=== PATIENT | male | born 1975 | race Caucasian/White ===

== ENCOUNTER → 2016-12-13 | Outpatient (CLI) | payer BC ==
[~2016-12-13] MED LIST: /ARTH50TA PO; /DULO30CA OR; /ONDA4TA OR; /PANT40TA PO; /SUCR1TA; /SUCR1TA PO; ADVI200C5 PO; BENT20TA; CALC500T49 OR; DICY20TA2 OR; DRIS50002 PO; FISH1000 OR; GABA600T3 PO; HYDR200T3 PO; HYOMAX PO; LIDO5OI EXT; LYRI75CA OR; MOBI15TA PO; NABU50TA PO; OMEP40CA2 PO; PAPATAB3 PO; PENNSAID TOP; PERC7.5T12 PO; SOMA350T OR; SULF500T2 PO; THERGRAN PO; TOPI25TA2 OR; TRAM50TA2 PO; ULTRTA; VENTAER INH; VICO5TAB OR; VICODINES TAB OR; VIT D 2000 OR; VITA400C PO; VITAMIN D50000 UNT OR; [UNRECOGNIZED DRUG - OTHER] PO; [UNRECOGNIZED DRUG - OTHER] PO; [UNRECOGNIZED DRUG - OTHER] PO; [UNRECOGNIZED DRUG - OTHER] PO; [UNRECOGNIZED DRUG - OTHER] PO; [UNRECOGNIZED DRUG - OTHER] PO; digestive advantage PO; oxyCODONE 5MG TAB As Ordered ONE; vitamin e OR
--- NOTE | 2016-12-14 01:21 | ECWPNPC ---
PATIENT NAME: SONI GILL : 1975 GENDER: MALE VISIT DATE: 12/13/2016 DISCHARGE DATE: 12/13/16 1041 VISIT LOCKED DATE TIME: PHYSICIAN: BRETT COOLEY RESOURCE: BRETT COOLEY REASON FOR APPOINTMENT 1. HERNIA HISTORY OF PRESENT ILLNESS HISTORY OF PRESENT ILLNESS: PAIN THE PATIENT DESCRIBES THE PAIN... FALL RISK SCREENING: SCREENING :NO FALLS IN THE PAST YEAR TODAY'S VISIT: NOTES: RATES PAIN TODAY 5/10. IS NOTING BILATERAL GROIN PAIN, WELL NECK AND LOW BACK AND BILATERAL KNEE PAIN. [facility] SE[facility] WHO WANT S TO MAKE SURE HE IS TAKING HIS CYMBALTA THIS IS BEING USED IN MANAGEMENT OF RHEUMATOID ARTHRITIS. . CURRENT MEDICATIONS TAKING ALBUTEROL SULFATE (5 MG/ML) 0.5% NEBULIZATION SOLUTION 0.5 ML INHALATION THREE TIMES A DAY TAKING DICYCLOMINE HCL 20 MG TABLET 1 TABLET ORALLY TID TAKING CYMBALTA 30 MG TABLET 1 TAB(S) ORALLY AT BEDTIME TAKING DIGESTIVE ENZYMES TABLET ORALLY DAILY TAKING GABAPENTIN 600 MG TABLET 1 TABLET ORALLY 5 TIMES A DAY TAKING HYDROXYCHLOROQUINE SULFATE 200 MG TABLET 1 TABLET WITH FOOD OR MILK ORALLY BID TAKING OMEPRAZOLE 40 MG CAPSULE DELAYED RELEASE 1 CAPSULE ORALLY TWICE A DAY TAKING VITAMIN D 1000 UNIT CAPSULE 1 CAPSULE ORALLY ONCE A DAY TAKING VITAMIN D 2000 UNIT TABLET ORALLY DAILY TAKING PROBIOTIC ACIDOPHILUS CAPSULE ORALLY QD TAKING MELOXICAM 15 MG TABLET ORAL DAILY TAKING SULFASALAZINE 500 MG TABLET ORAL 6 TIMES PER DAY TAKING CYMBALTA 60 MG CAPSULE DELAYED RELEASE PARTICLES 1 CAPSULE ORALLY ONCE A DAY TDD=90 MG TAKING TURMERIC 500 MG CAPSULE ORALLY 4 TIMES A DAY TAKING CARISOPRODOL 350 MG TABLET 1 TABLET NEEDED ORALLY THREE TIMES DAILY MDD=3 TAKING PERCOCET 7.5-325 MG TABLET 1 TABLET NEEDED ORALLY TAKE 1 TAB Q 4 HRS PRN PAIN MDD=5 TAKING LIDOCAINE 4 % CREAM DIRECTED EXTERNALLY APPLY TO PAINFUL AREA IN GROIN FOLDS Q 4 HOUS PRN PAIN NOT-TAKING SUCRALFATE 1 GM TABLET 1 TABLET ON AN EMPTY STOMACH ORALLY TWICE A DAY NOT-TAKING SOMA 350 MG TABLET 1 TABLET NEEDED ORALLY BID MDD=2 NOT-TAKING DRISDOL 88587 UNIT CAPSULE 1 CAPSULE ORALLY NOT-TAKING PROBIOTIC CAPSULE ORALLY UNKNOWN CYMBALTA 30 MG CAPSULE DELAYED RELEASE PARTICLES 1 CAPSULE ORALLY DAILY TDD=90 MG UNKNOWN GABAPENTIN 600 MG TABLET 1 TABLET ORALLY Q 4 HRS MEDICATION LIST REVIEWED AND RECONCILED WITH THE PATIENT PAST MEDICAL HISTORY ASTHMA GERD HIATLE HERNIA HEARING LOSS HYPOTHYROID CLAUSTROPHOBIA ALLERGIES NAPROSYN: GI DISTRESS IVP DYE: RASH SHELLFISH: RASH SOCIAL HISTORY GENERAL: TOBACCO USE ARE YOU A:NONSMOKER LEARNING BARRIERS / SPECIAL NEEDS ORIENTED TO PLAN OF CARE: PATIENT, PAIN MANAGEMENT PATIENT, ORIENTED TO PLAN OF CARE: PATIENT, PAIN MANAGEMENT PATIENT. NEW PATIENT PAIN DIARY TODAY'S VISITNOTES FROM 0-10, WHAT LEVEL IS YOUR PAIN TODAY?0 PAIN CLINIC PFS, CLERGY, PUBLIC HEALTH REFERRALS PFS REFERRAL NEEDED?NO CLERGY REFERRAL NEEDED?NO PUBLIC HEALTH REFERRAL NEEDED?NO WAS THE PROVIDER NOTIFIED OF ANY PERTINENT INFO?NO PFS REFERRAL NEEDED?NO CLERGY REFERRAL NEEDED?NO PUBLIC HEALTH REFERRAL NEEDED?NO WAS THE PROVIDER NOTIFIED OF ANY PERTINENT INFO?NO REVIEW OF SYSTEMS CONSTITUTIONAL: ANY CHANGE IN YOUR MEDICAL CONDITION? NO . CHILLS NO . FEVER NO . INFECTION: DO YOU HAVE NEW INFECTIONS? NO . DO YOU HAVE HISTORY OF MRSA? NO . MUSCULOSKELETAL: ANY NEW PATTERNS OF PAIN OR NUMBNESS? NO . GASTROENTEROLOGY: ANY NEW CHANGE IN BOWEL CONTROL? NO . GENITOURINARY: ANY NEW CHANGE IN BLADDER CONTROL? NO . IS THERE A CHANCE YOU COULD BE ? NO . HEMATOLOGY/LYMPH: DO YOU TAKE ANY BLOOD THINNERS? (FOR EXAMPLE- COUMADIN, PLAVIX, AGGRENOX, PLATEL, PRADAXA, OR XARELTO) NO . WHEN WAS YOUR LAST DOSE? DATE: TIME: . NEUROLOGY: HAVE YOU FALLEN IN THE PAST 6 MONTHS? NO . ANY NEW EXTREMITY NUMBNESS OR WEAKNESS? NO . CARDIOLOGY: DO YOU HAVE A PACEMAKER OR DEFIBRILLATOR? NO . RESPIRATORY: HAVE YOU BEEN SICK IN THE PAST WEEK? NO . FEVER NO . FLU LIKE SYMPTOMS? NO . COUGH NO . INTEGUMENTARY: DO YOU HAVE ANY RASHES OR OPEN SORES? NO . ALLERGIC/IMMUNO: ARE YOU ALLERGIC TO SHELLFISH OR IV DYE? YES . ANY NEW ALLERGIES? NO . PSYCHIATRIC: DO YOU HAVE THOUGHTS OF HURTING YOURSELF OR SOMEONE ELSE? NO . ARE YOU ABUSED, NEGLECTED, OR IN AN UNSAFE ENVIRONMENT? NO . ENDOCRINOLOGY: ARE YOU DIABETIC? NO . OTHER: DO YOU NEED ANY PRESCRIPTIONS? YES . IF YES, PLEASE LIST: OXYCODONE . ANY NEW PROBLEMS WITH YOUR MEDICATIONS? NO . WHEN DID YOU LAST EAT? ____ . WHEN DID YOU LAST DRINK? ____ . WHAT DID YOU LAST DRINK? ____ . NAME OF PERSON DRIVING YOU HOME? ____ . DO YOU HAVE ANY OTHER QUESTIONS OR CONCERNS NO . REVIEWED BY: PROVIDER: BRETT JUAREZ . VITAL SIGNS WT 246.8 LBS, HT 66 IN, BMI 39.83 INDEX, BP 117/76 MM HG, HR 103 /MIN, RR 16 /MIN, TEMP 98.8 F, OXYGEN SAT % 97%, NA INITIALS SC 10:04, REVIEWED BY: CS. EXAMINATION GENERAL EXAMINATION: PSYCHALERT , ORIENTED X 3 , APPROPRIATE MOOD AND AFFECT . LUNGS:CLEAR TO AUSCULTATION BILATERALLY. HEART:HEART RATE REGULAR, RAPID., NO S3, S4, MURMUR OR RUB. ABDOMEN:TENDER AT GROIN AREA, TENDER TO PALPATION, BOWEL SOUNDS ACTIVE IN ALL QUADRANTS. JOINTS:LEFT , KNEE , PAIN , SWELLING , AT REST . 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 PROCEDURE CODES FA211 ESTABILISHED PATIENT [facility] CHARGE DISPOSITION & COMMUNICATION FOLLOW UP 7 WEEKS ELECTRONICALLY SIGNED BY DOMENICO LARA ON 12/13/2016 AT 01:08 PM EST DISCLAIMER : THIS IS A VISIT SUMMARY EXTRACTED FROM THE [employer] CHART. IT IS NOT A COPY OF THE [employer] PROGRESS NOTE. MTDD
== END ==
LOC: M PAIN 10:00
PROVIDERS: ATTEND Nurse Practitioner Family
DX: G57.92 Unspecified mononeuropathy of left lower limb (principal); G57.91 Unspecified mononeuropathy of right lower limb; R10.9 Unspecified abdominal pain; Z79.899 Other long term (current) drug therapy; M54.5 Low back pain; G89.29 Other chronic pain; M06.9 Rheumatoid arthritis, unspecified; M25.561 Pain in right knee; M25.562 Pain in left knee; M54.2 Cervicalgia; Z88.6 Allergy status to analgesic agent; Z91.041 Radiographic dye allergy status; Z91.013 Allergy to seafood

== ENCOUNTER → 2017-01-31 | Outpatient (CLI) | payer BC ==
[~2017-01-31] MED LIST changes: -oxyCODONE 5MG TAB As Ordered ONE
--- NOTE | 2017-02-15 01:25 | ECWPNPC ---
PATIENT NAME: SONI GILL : 1975 GENDER: MALE VISIT DATE: 01/31/2017 DISCHARGE DATE: 01/31/17 1009 VISIT LOCKED DATE TIME: PHYSICIAN: BRETT COOLEY RESOURCE: BRETT COOLEY REASON FOR APPOINTMENT 1. HERNIA HISTORY OF PRESENT ILLNESS HISTORY OF PRESENT ILLNESS: PAIN THE PATIENT DESCRIBES THE PAIN... FALL RISK SCREENING: SCREENING :NO FALLS IN THE PAST YEAR TODAY'S VISIT: NOTES: RAN OUT OF CYMBALTA AND HAD INCREASED IRRITABLITY, NEUROPATHIC PAIN IN RIGHT LEG, HAS RESTARTED CYMBALTA WITH IMPROVEMENT. RATES PAIN TODAY 6/10. DESCRIBES PAIN CONSTANT, ACHING AND BURNING, TENDER, THROBBING AND SORE WITH INTERMITTANT SHRP AND STABBING PAIN WELL SWELLING INTO GROIN AREA BILATERALLY. . CURRENT MEDICATIONS TAKING DICYCLOMINE HCL 20 MG TABLET 1 TABLET ORALLY TID TAKING CYMBALTA 30 MG TABLET 1 TAB(S) ORALLY AT BEDTIME TAKING DIGESTIVE ENZYMES TABLET ORALLY DAILY TAKING GABAPENTIN 600 MG TABLET 1 TABLET ORALLY 5 TIMES A DAY TAKING HYDROXYCHLOROQUINE SULFATE 200 MG TABLET 1 TABLET WITH FOOD OR MILK ORALLY BID TAKING OMEPRAZOLE 40 MG CAPSULE DELAYED RELEASE 1 CAPSULE ORALLY TWICE A DAY TAKING VITAMIN D 1000 UNIT CAPSULE 1 CAPSULE ORALLY ONCE A DAY TAKING VITAMIN D 2000 UNIT TABLET ORALLY DAILY TAKING PROBIOTIC ACIDOPHILUS CAPSULE ORALLY QD TAKING SULFASALAZINE 500 MG TABLET ORAL 6 TIMES PER DAY TAKING CYMBALTA 60 MG CAPSULE DELAYED RELEASE PARTICLES 1 CAPSULE ORALLY ONCE A DAY TDD=90 MG TAKING TURMERIC 500 MG CAPSULE ORALLY 4 TIMES A DAY TAKING CARISOPRODOL 350 MG TABLET 1 TABLET NEEDED ORALLY THREE TIMES DAILY MDD=3 TAKING LIDOCAINE 4 % CREAM DIRECTED EXTERNALLY APPLY TO PAINFUL AREA IN GROIN FOLDS Q 4 HOUS PRN PAIN TAKING PERCOCET 7.5-325 MG TABLET 1 TABLET NEEDED ORALLY TAKE 1 TAB Q 4 HRS PRN PAIN MDD=5 TAKING SOMA 350 MG TABLET 1 TABLET NEEDED ORALLY THREE TIMES DAILY MDD=3 TAKING CELECOXIB & CAPSAICIN-MENTHOL 200 & 0.0375-5 MG & % KIT COMBINATION NOT-TAKING ALBUTEROL SULFATE (5 MG/ML) 0.5% NEBULIZATION SOLUTION 0.5 ML INHALATION THREE TIMES A DAY NOT-TAKING MELOXICAM 15 MG TABLET ORAL DAILY NOT-TAKING SUCRALFATE 1 GM TABLET 1 TABLET ON AN EMPTY STOMACH ORALLY TWICE A DAY NOT-TAKING DRISDOL 43832 UNIT CAPSULE 1 CAPSULE ORALLY NOT-TAKING PROBIOTIC CAPSULE ORALLY UNKNOWN CYMBALTA 30 MG CAPSULE DELAYED RELEASE PARTICLES 1 CAPSULE ORALLY DAILY TDD=90 MG UNKNOWN GABAPENTIN 600 MG TABLET 1 TABLET ORALLY Q 4 HRS MEDICATION LIST REVIEWED AND RECONCILED WITH THE PATIENT PAST MEDICAL HISTORY ASTHMA GERD HIATLE HERNIA HEARING LOSS HYPOTHYROID CLAUSTROPHOBIA ALLERGIES NAPROSYN: GI DISTRESS IVP DYE: RASH SHELLFISH: RASH SOCIAL HISTORY GENERAL: PAIN CLINIC PFS, CLERGY, PUBLIC HEALTH REFERRALS CLERGY REFERRAL NEEDED?NO WAS THE PROVIDER NOTIFIED OF ANY PERTINENT INFO?NO PFS REFERRAL NEEDED?NO PUBLIC HEALTH REFERRAL NEEDED?NO PATIENT: ____. REVIEW OF SYSTEMS CONSTITUTIONAL: ANY CHANGE IN YOUR MEDICAL CONDITION? NO . CHILLS NO . FEVER NO . INFECTION: DO YOU HAVE NEW INFECTIONS? NO . DO YOU HAVE HISTORY OF MRSA? NO . MUSCULOSKELETAL: ANY NEW PATTERNS OF PAIN OR NUMBNESS? NO . GASTROENTEROLOGY: ANY NEW CHANGE IN BOWEL CONTROL? NO . GENITOURINARY: ANY NEW CHANGE IN BLADDER CONTROL? NO . IS THERE A CHANCE YOU COULD BE ? NO . HEMATOLOGY/LYMPH: DO YOU TAKE ANY BLOOD THINNERS? (FOR EXAMPLE- COUMADIN, PLAVIX, AGGRENOX, PLATEL, PRADAXA, OR XARELTO) NO . WHEN WAS YOUR LAST DOSE? DATE: TIME: . NEUROLOGY: HAVE YOU FALLEN IN THE PAST 6 MONTHS? NO . ANY NEW EXTREMITY NUMBNESS OR WEAKNESS? NO . CARDIOLOGY: DO YOU HAVE A PACEMAKER OR DEFIBRILLATOR? NO . RESPIRATORY: HAVE YOU BEEN SICK IN THE PAST WEEK? NO . FEVER NO . FLU LIKE SYMPTOMS? NO . COUGH NO . INTEGUMENTARY: DO YOU HAVE ANY RASHES OR OPEN SORES? NO . ALLERGIC/IMMUNO: ARE YOU ALLERGIC TO SHELLFISH OR IV DYE? YES . ANY NEW ALLERGIES? NO . PSYCHIATRIC: DO YOU HAVE THOUGHTS OF HURTING YOURSELF OR SOMEONE ELSE? NO . ARE YOU ABUSED, NEGLECTED, OR IN AN UNSAFE ENVIRONMENT? NO . ENDOCRINOLOGY: ARE YOU DIABETIC? NO . OTHER: DO YOU NEED ANY PRESCRIPTIONS? YES QUESTIONS ABOUT CYMBALTA . IF YES, PLEASE LIST: ____ . ANY NEW PROBLEMS WITH YOUR MEDICATIONS? NO . WHEN DID YOU LAST EAT? ____ . WHEN DID YOU LAST DRINK? ____ . WHAT DID YOU LAST DRINK? ____ . NAME OF PERSON DRIVING YOU HOME? ____ . DO YOU HAVE ANY OTHER QUESTIONS OR CONCERNS NO . REVIEWED BY: PROVIDER: BRETT JUAREZ . VITAL SIGNS WT 248.2 LBS, HT 66 IN, BMI 40.06 INDEX, BP 176/98 MM HG, HR 119 /MIN, RR 16 /MIN, TEMP 98.8 F, OXYGEN SAT % 97%, NA INITIALS AW 0919. EXAMINATION GENERAL EXAMINATION: PSYCHALERT , ORIENTED X 3 , APPROPRIATE MOOD AND AFFECT . LUNGS:CLEAR TO AUSCULTATION BILATERALLY. HEART:HEART RATE REGULAR, RAPID., NO S3, S4, MURMUR OR RUB. ABDOMEN:TENDER AT GROIN AREA, TENDER TO PALPATION, BOWEL SOUNDS ACTIVE IN ALL QUADRANTS. JOINTS:LEFT , KNEE , PAIN , SWELLING , AT REST . 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 UTOX TODAY. UPDATE NARCOTIC AGREEEMENT. PROCEDURE CODES FA211 ESTABILISHED PATIENT [facility] CHARGE DISPOSITION & COMMUNICATION FOLLOW UP 2-3 MONTHS ELECTRONICALLY SIGNED BY DOMENICO LARA ON 02/14/2017 AT 08:48 AM EDT DISCLAIMER : THIS IS A VISIT SUMMARY EXTRACTED FROM THE [employer] CHART. IT IS NOT A COPY OF THE [employer] PROGRESS NOTE. LARY
== END ==
LOC: M PAIN 09:20
PROVIDERS: ATTEND Nurse Practitioner Family
DX: G89.29 Other chronic pain (principal); G57.92 Unspecified mononeuropathy of left lower limb; G57.91 Unspecified mononeuropathy of right lower limb; M54.5 Low back pain; R10.9 Unspecified abdominal pain; J45.909 Unspecified asthma, uncomplicated; K21.9 Gastro-esophageal reflux disease without esophagitis; E03.9 Hypothyroidism, unspecified; H91.90 Unspecified hearing loss, unspecified ear; F40.240 Claustrophobia; Z79.891 Long term (current) use of opiate analgesic; Z79.899 Other long term (current) drug therapy; Z88.6 Allergy status to analgesic agent; Z91.041 Radiographic dye allergy status; Z91.013 Allergy to seafood

== ENCOUNTER 2017-03-29 13:24 | Emergency (ER) | payer BC ==
[~2017-03-29] VITALS: Ht 167.6 cm; Wt 109.2 kg
[~2017-03-29 13:24] MED LIST changes: +NABU500T PO; -NABU50TA PO
[2017-03-29] MEDS ORDERED: VITA100067 PO (13:39)
[2017-03-29 15:33] LABS: BASO % 0.5 % (0.0-1.0); EOS # 0.1 K/mm3 (0.0-0.50); LARGE UNSTAINED CELL # 0.1 K/mm3 (0.0-0.4); LARGE UNSTAINED CELL % 1.6 % (0.0-4.0); LYMPH # 1.9 K/mm3 (1.5-4.5); MEAN CORPUSCULAR HEMOGLOBIN 31.3 pg (27.0-33.0); MEAN CORPUSCULAR HGB CONC 34.7 g/dl (32.0-36.5); MEAN CORPUSCULAR VOLUME 90.2 fl (80.0-96.0); MONO # 0.4 K/mm3 (0.0-0.8); NEUTROPHILS # 5.7 K/mm3 (1.8-7.7); NEUTROPHILS % 68.9 % (36.0-66.0); PLATELET COUNT, AUTOMATED 205 k/mm3 (150-450); RED CELL DISTRIBUTION WIDTH 12.4 % (11.5-14.5); WHITE BLOOD COUNT 8.3 K/mm3 (4.0-10.0)
[2017-03-29 15:57] LABS: ERYTHROCYTE SEDIMENTATION RATE 2 mm/hr (0-15)
[2017-03-29 16:01] LABS: ANION GAP 4 MEQ/L (8-16); BLOOD UREA NITROGEN 8 MG/DL (7-18); CARBON DIOXIDE LEVEL 30 MEQ/L (21-32); CHLORIDE LEVEL 107 MEQ/L (98-107); CREATININE FOR GFR 0.99 MG/DL (0.70-1.30); GLOMERULAR FILTRATION RATE > 60.0 (>60); GLUCOSE, FASTING 95 MG/DL (70-105); POTASSIUM SERUM 4.2 MEQ/L (3.5-5.1); SODIUM LEVEL 141 MEQ/L (136-145); T UPTAKE 35 % (33-40); THYROXINE (T4) 4.8 UG/DL (4.5-12.0)
--- NOTE | 2017-03-29 18:09 | REP ---
MR THORACIC SPINE WITHOUT AND WITH CONTRAST: HISTORY: Paresthesias. A small left paracentral disc protrusion is present at the T10-11 level. There is minimal effacement of the thecal sac without spinal cord compression. The T10 neural foramina are patent. There is no other disc bulge or herniation. The remaining neural foramina are patent. The spinal cord is normal in signal intensity. There is no abnormal enhancement. Normal signal intensity is present in the thoracic vertebral bodies. IMPRESSION: Small disc protrusion at the T10-11 level without spinal cord compression. Signed by Tico James MD 03/30/2017 08:41 A
--- NOTE | 2017-03-29 18:11 | REP ---
MR CERVICAL SPINE WITHOUT AND WITH CONTRAST: HISTORY: Paresthesias. A disc bulge is present at the C4-5 level. There is minimal effacement of the thecal sac without spinal cord compression. The C4 neural foramina are patent. A disc bulge is present at the C5-6 level. There is minimal effacement of the thecal sac without spinal cord compression. The C5 neural foramina are patent. A disc bulge is present at the C6-7 level. There is moderate effacement of the thecal sac without spinal cord compression. The C6 neural foramina are patent. There is no other disc bulge or herniation. The neural foramina are patent. The spinal cord is normal in signal intensity. There is no abnormal enhancement. Normal signal intensity is present in the cervical vertebral bodies. IMPRESSION: There is cervical spondylosis at the C4-5 through C6-7 levels without spinal cord compression. Signed by Tico James MD 03/30/2017 08:41 A
--- NOTE | 2017-03-29 18:13 | REP ---
MR BRAIN WITHOUT AND WITH CONTRAST: HISTORY: Paresthesias. There are no areas of abnormal signal intensity in the brain. There is no intraparenchymal hemorrhage, acute infarct, mass or midline shift. There is no abnormal enhancement. The ventricular system is normal in appearance. There is no extracerebral collection. The sinuses are clear. IMPRESSION: There is no intracranial lesion. Signed by Tico James MD 03/30/2017 08:41 A
[2017-03-29 18:54] VITALS: BP 161/102
[2017-04-01 00:06] LABS: Lyme Disease IgG/IgM Antibodie <0.91 ISR (0.00-0.90); Lyme Disease IgM Ab Quantitati <0.80 index (0.00-0.79); T PALLIDUM AB (FTA-AB) Non Reactive (Non Reactive)
== END 2017-03-29 19:40 | disposition home or self-care (01) ==
LOC: M ED 14:31
DX: M47.812 Spondylosis without myelopathy or radiculopathy, cervical region (principal); M51.24 Other intervertebral disc displacement, thoracic region; R20.9 Unspecified disturbances of skin sensation; Z91.81 History of falling; R51 Headache; H93.19 Tinnitus, unspecified ear; J45.909 Unspecified asthma, uncomplicated; K90.0 Celiac disease; Z72.0 Tobacco use; Z79.899 Other long term (current) drug therapy; Z91.041 Radiographic dye allergy status; Z88.8 Allergy status to other drugs, medicaments and biological substances; Z91.013 Allergy to seafood
CPT/HCPCS: 70553; 72156; 72157; 80048; 83520; 84436; 84443; 84479; 85025; 85652; 86140; 86617; 86780; 99283; A9576

== ENCOUNTER → 2017-05-02 | Outpatient (CLI) | payer BC, OTHER ==
[~2017-05-02] MED LIST changes: +VITA100067 PO
--- NOTE | 2017-06-03 01:18 | ECWPNPC ---
PATIENT NAME: SONI GILL : 1975 GENDER: MALE VISIT DATE: 05/02/2017 DISCHARGE DATE: 05/02/17 1014 VISIT LOCKED DATE TIME: PHYSICIAN: BRETT COOLEY RESOURCE: BRETT COOLEY REASON FOR APPOINTMENT 1. NEW BODY PART - NECK/BACK PAIN HISTORY OF PRESENT ILLNESS HISTORY OF PRESENT ILLNESS: PAIN THE PATIENT DESCRIBES THE PAIN... FALL RISK SCREENING: SCREENING :NO FALLS IN THE PAST YEAR TODAY'S VISIT: NOTES: RATES PAIN TODAY 04/23 IS REFERRED TODAY FOR NEW PROBLEM OF NECK AND BACK PAIN BY PCP OSEAS SANCHEZ. WAS IN ER ON 03/29/17 FOR INCREASED BURNING PAIN AND HEADACHES, BLURRED VISION AND PAIN IN ARMS AND LEGS. HAD NEW MRI'S OF NECK AND LOW BACK. REFERRAL HAS BEEN MADE TO NEUROLOGY. . CURRENT MEDICATIONS TAKING CYMBALTA 30 MG TABLET 1 TAB(S) ORALLY AT BEDTIME TAKING HYDROXYCHLOROQUINE SULFATE 200 MG TABLET 1 TABLET WITH FOOD OR MILK ORALLY BID TAKING OMEPRAZOLE 40 MG CAPSULE DELAYED RELEASE 1 CAPSULE ORALLY TWICE A DAY TAKING PROBIOTIC ACIDOPHILUS CAPSULE ORALLY QD TAKING CYMBALTA 60 MG CAPSULE DELAYED RELEASE PARTICLES 1 CAPSULE ORALLY ONCE A DAY TDD=90 MG TAKING LIDOCAINE 4 % CREAM DIRECTED EXTERNALLY APPLY TO PAINFUL AREA IN GROIN FOLDS Q 4 HOUS PRN PAIN, NOTES: NOT COVERED BY INSURANCE TAKING SOMA 350 MG TABLET 1 TABLET NEEDED ORALLY THREE TIMES DAILY MDD=3 TAKING PERCOCET 7.5-325 MG TABLET 1 TABLET NEEDED ORALLY TAKE 1 TAB Q 4 HRS PRN PAIN MDD=5 TAKING GABAPENTIN 600 MG TABLET 1 TABLET ORALLY 5 TIMES A DAY TAKING VITAMIN D (ERGOCALCIFEROL) 47781 UNIT CAPSULE 1 CAPSULE ORALLY WEEKLY TAKING SVETLANA ROOT 500 MG CAPSULE 2 CAPS ORALLY TWICE DAILY TAKING TESTOSTERONE 20 % CREAM DAILY NOT-TAKING DICYCLOMINE HCL 20 MG TABLET 1 TABLET ORALLY TID NOT-TAKING DIGESTIVE ENZYMES TABLET ORALLY DAILY NOT-TAKING ALBUTEROL SULFATE (5 MG/ML) 0.5% NEBULIZATION SOLUTION 0.5 ML INHALATION THREE TIMES A DAY NOT-TAKING MELOXICAM 15 MG TABLET ORAL DAILY NOT-TAKING SUCRALFATE 1 GM TABLET 1 TABLET ON AN EMPTY STOMACH ORALLY TWICE A DAY NOT-TAKING DRISDOL 63120 UNIT CAPSULE 1 CAPSULE ORALLY NOT-TAKING PROBIOTIC CAPSULE ORALLY DISCONTINUED VITAMIN D 1000 UNIT CAPSULE 1 CAPSULE ORALLY ONCE A DAY DISCONTINUED VITAMIN D 2000 UNIT TABLET ORALLY DAILY DISCONTINUED SULFASALAZINE 500 MG TABLET ORAL 6 TIMES PER DAY DISCONTINUED TURMERIC 500 MG CAPSULE ORALLY 4 TIMES A DAY DISCONTINUED CARISOPRODOL 350 MG TABLET 1 TABLET NEEDED ORALLY THREE TIMES DAILY MDD=3 DISCONTINUED CELECOXIB & CAPSAICIN-MENTHOL 200 & 0.0375-5 MG & % KIT COMBINATION UNKNOWN CYMBALTA 30 MG CAPSULE DELAYED RELEASE PARTICLES 1 CAPSULE ORALLY DAILY TDD=90 MG UNKNOWN GABAPENTIN 600 MG TABLET 1 TABLET ORALLY Q 4 HRS MEDICATION LIST REVIEWED AND RECONCILED WITH THE PATIENT PAST MEDICAL HISTORY ASTHMA GERD HIATLE HERNIA HEARING LOSS HYPOTHYROID CLAUSTROPHOBIA ALLERGIES NAPROSYN: GI DISTRESS IVP DYE: RASH SHELLFISH: RASH REVIEW OF SYSTEMS REVIEWED BY: PROVIDER: BRETT JUAREZ . CONSTITUTIONAL: ANY CHANGE IN YOUR MEDICAL CONDITION? YES, ON TESTOSTERONE AND VITAMIN D TRYING TO GET . CHILLS NO . FEVER NO . INFECTION: DO YOU HAVE NEW INFECTIONS? NO . DO YOU HAVE HISTORY OF MRSA? NO . MUSCULOSKELETAL: ANY NEW PATTERNS OF PAIN OR NUMBNESS? YES, TWO HERNIATED DISC IN THE BACK GETTING WORSE PAIN . GASTROENTEROLOGY: ANY NEW CHANGE IN BOWEL CONTROL? NO . GENITOURINARY: ANY NEW CHANGE IN BLADDER CONTROL? NO . IS THERE A CHANCE YOU COULD BE ? NO . HEMATOLOGY/LYMPH: DO YOU TAKE ANY BLOOD THINNERS? (FOR EXAMPLE- COUMADIN, PLAVIX, AGGRENOX, PLATEL, PRADAXA, OR XARELTO) NO . WHEN WAS YOUR LAST DOSE? DATE: TIME: . NEUROLOGY: HAVE YOU FALLEN IN THE PAST 6 MONTHS? YES . ANY NEW EXTREMITY NUMBNESS OR WEAKNESS? NO . CARDIOLOGY: DO YOU HAVE A PACEMAKER OR DEFIBRILLATOR? NO . RESPIRATORY: HAVE YOU BEEN SICK IN THE PAST WEEK? NO . FEVER NO . FLU LIKE SYMPTOMS? NO . COUGH NO . INTEGUMENTARY: DO YOU HAVE ANY RASHES OR OPEN SORES? NO . ALLERGIC/IMMUNO: ARE YOU ALLERGIC TO SHELLFISH OR IV DYE? YES, BOTH SHELFISH AND IV DYE . ANY NEW ALLERGIES? NO . PSYCHIATRIC: DO YOU HAVE THOUGHTS OF HURTING YOURSELF OR SOMEONE ELSE? NO . ARE YOU ABUSED, NEGLECTED, OR IN AN UNSAFE ENVIRONMENT? NO . ENDOCRINOLOGY: ARE YOU DIABETIC? NO . OTHER: DO YOU NEED ANY PRESCRIPTIONS? YES . IF YES, PLEASE LIST: OXYCODONE . ANY NEW PROBLEMS WITH YOUR MEDICATIONS? NO . WHEN DID YOU LAST EAT? ____ . WHEN DID YOU LAST DRINK? ____ . WHAT DID YOU LAST DRINK? ____ . NAME OF PERSON DRIVING YOU HOME? ____ . DO YOU HAVE ANY OTHER QUESTIONS OR CONCERNS YES, DR JOE PUT ME ON TESTOSTERONE VITAMIN D . VITAL SIGNS WT 245 LBS, HT 66 IN, BMI 39.54 INDEX, BP 148/91 MM HG, HR 97 /MIN, RR 18 /MIN, TEMP 97.5 F, OXYGEN SAT % 97%, NA INITIALS SC 09:08, REVIEWED BY: EVELYN. EXAMINATION GENERAL EXAMINATION: PSYCHALERT , ORIENTED X 3 , APPROPRIATE MOOD AND AFFECT . HEENT:THICK NECK. NO THYROMEGLY, NO LYMPHADENOPATHY. , NORMOCEPHALIC. LUNGS:CLEAR TO AUSCULTATION BILATERALLY. HEART:NORMAL S1S2, NO MURMURS, CLICK OR RUBS. MUSCULOSKELETAL:MUSCLE STRENGTH TESTING 5/5 BILATERAL DISTAL AND PROX IN UPPER AND LOWER EXTREMITIES. POINT TENDERNESS OVER CERVICAL SPINOUS PROCESSES AND OVER LUMBAR SPINOUS PROCESSES. CAN FLEX LUMBAR SPINE TO 60 DEGREES, AND ABLE TO COME TO MIDLINE ONLY DUE TO ABDOMENAL PAIN. SLR POS AT 20 DEGREES BILATERALLY. LOW BACK PAIN WITH PATRICKS TESTING AND PELVIC COMPRESSION. POSTURE SLIGHTLY STOOPED. GIT NONANTALGIC. NEUROLOGIC EXAM:NO TREMOR, NO MYOKYMIA OBSERVED, CN'S II-XII GROSSLY INTACT. DTR'S 2+ BILATERAL UPPER EXTREMITIES, 3+ BILATERAL LOWER EXTREMITIES. NO SENSORY DEFICEIT. DIAGNOSTIC TESTS REVIEWEDMRI OF CERVICAL SPINE COMPLETED 03/31/17 REVIEWED. 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 CLINICAL NOTES: ISTOP REGISTRY REVIEWED AND DEMNOSTRATES COMPLLIANCE. BRINGS IN MEDICATIONS WHICH IS APPROPRIATE FOR WHAT WAS DISPENSED. RECENT URINE TOXICOLOGY REVIEWED. NO UNAUTHORIZED MEDICATIONS. NO ILLICIT SUBSTANCES AND PRESCRIBED MEDICATIONS WERE PRESENT. PROCEDURE CODES FA211 ESTABILISHED PATIENT [facility] CHARGE DISPOSITION & COMMUNICATION FOLLOW UP 1 MONTH (REASON: CHECK AUTH FOR CEVICAL EPIDURAL) ELECTRONICALLY SIGNED BY DOMENICO LARA ON 05/30/2017 AT 07:11 PM EDT DISCLAIMER : THIS IS A VISIT SUMMARY EXTRACTED FROM THE [employer] CHART. IT IS NOT A COPY OF THE [employer] PROGRESS NOTE. LARY
== END ==
LOC: M PAIN 09:00
PROVIDERS: ATTEND Nurse Practitioner Family
DX: G57.92 Unspecified mononeuropathy of left lower limb (principal); G57.91 Unspecified mononeuropathy of right lower limb; R10.9 Unspecified abdominal pain; M54.5 Low back pain; G89.29 Other chronic pain; Z79.891 Long term (current) use of opiate analgesic; Z79.899 Other long term (current) drug therapy; Z91.041 Radiographic dye allergy status; Z91.013 Allergy to seafood; Z88.6 Allergy status to analgesic agent

== ENCOUNTER → 2017-05-10 | Outpatient (REF) | payer BC, OTHER ==
[2017-05-10 13:33] LABS: IMMMOTILE SPERM CENTRIFUGED PRESENT (ABSENT); IMMOTILE SPERM PRESENT (ABSENT); MOTILE SPERM PRESENT (ABSENT); MOTILE SPERM CENTRIFUGED PRESENT (ABSENT)
[2017-05-10 13:35] LABS: SPERM ABNORMAL FORMS OTHER (SPECIFIY)
== END ==
LOC: M LAB REF 13:28
PROVIDERS: ATTEND Specialist
DX: N52.9 Male erectile dysfunction, unspecified (principal)

== ENCOUNTER → 2017-06-20 | Outpatient (CLI) | payer BC, OTHER ==
[~2017-06-20] MED LIST changes: +ISOVUE-M 300 61% 15ML VIAL (Q9967) As Ordered ONE; +LIDOCAINE 1% SDV INJ 30 ML VIAL As Ordered ONE; +diazePAM 5 MG TAB As Ordered ONE; +diphenhydrAMINE 25 MG CAP As Ordered ONE; +methylPREDNISolone SUSP 40 MG/ML (DEPO-medrol) VIAL (J1030) As Ordered ONE; +oxyCODONE 5MG TAB As Ordered ONE
--- NOTE | 2017-06-20 13:23 | REP ---
CERVICAL SPINE SERIES: Three views. HISTORY: Cervical epidural injection procedure for pain. 21 seconds of fluoroscopy time is reported. FINDINGS: A sequence of three last image hold fluoroscopic spot radiographs of the cervical spine document needle position and contrast injection associated with epidural injection procedure. Signed by Lane Baker MD 06/20/2017 06:33 P
--- NOTE | 2017-06-21 00:28 | ECWPNPC ---
PATIENT NAME: SONI GILL : 1975 GENDER: MALE VISIT DATE: 06/20/2017 DISCHARGE DATE: 06/20/17 1257 VISIT LOCKED DATE TIME: PHYSICIAN: JULIO C JO RESOURCE: JULIO C JO REASON FOR APPOINTMENT 1. CEVICAL EPIDURAL HISTORY OF PRESENT ILLNESS HISTORY OF PRESENT ILLNESS: PAIN THE PATIENT DESCRIBES THE PAIN... FALL RISK SCREENING: SCREENING :NO FALLS IN THE PAST YEAR CURRENT MEDICATIONS TAKING CYMBALTA 30 MG TABLET 1 TAB(S) ORALLY AT BEDTIME, NOTES: 06/20/17799 TAKING HYDROXYCHLOROQUINE SULFATE 200 MG TABLET 1 TABLET WITH FOOD OR MILK ORALLY BID, NOTES: NONE LATELY TAKING OMEPRAZOLE 40 MG CAPSULE DELAYED RELEASE 1 CAPSULE ORALLY TWICE A DAY, NOTES: 06/20/17799 TAKING PROBIOTIC ACIDOPHILUS CAPSULE ORALLY QD, NOTES: NONE LATELY TAKING CYMBALTA 60 MG CAPSULE DELAYED RELEASE PARTICLES 1 CAPSULE ORALLY ONCE A DAY TDD=90 MG, NOTES: 06/20/17799 TAKING SOMA 350 MG TABLET 1 TABLET NEEDED ORALLY THREE TIMES DAILY MDD=3, NOTES: 06/19/172199 TAKING VITAMIN D (ERGOCALCIFEROL) 67251 UNIT CAPSULE 1 CAPSULE ORALLY WEEKLY, NOTES: 06/19/17799 TAKING SVETLANA ROOT 500 MG CAPSULE 2 CAPS ORALLY TWICE DAILY, NOTES: 06/20/17799 TAKING TESTOSTERONE 20 % CREAM DAILY, NOTES: 06/20/17799 TAKING ZONISAMIDE 25 MG CAPSULE 2 CAPSULES ORALLY TWICE A DAY, NOTES: 06/18/17 TAKING PERCOCET 7.5-325 MG TABLET 1 TABLET NEEDED ORALLY TAKE 1 TAB Q 4 HRS PRN PAIN MDD=5, NOTES: 06/20/17799 TAKING GABAPENTIN 600 MG TABLET 1 TABLET ORALLY 5 TIMES A DAY, NOTES: 06/20/17799 NOT-TAKING LIDOCAINE 4 % CREAM DIRECTED EXTERNALLY APPLY TO PAINFUL AREA IN GROIN FOLDS Q 4 HOUS PRN PAIN, NOTES: NOT COVERED BY INSURANCE NOT-TAKING DICYCLOMINE HCL 20 MG TABLET 1 TABLET ORALLY TID NOT-TAKING DIGESTIVE ENZYMES TABLET ORALLY DAILY NOT-TAKING ALBUTEROL SULFATE (5 MG/ML) 0.5% NEBULIZATION SOLUTION 0.5 ML INHALATION THREE TIMES A DAY NOT-TAKING MELOXICAM 15 MG TABLET ORAL DAILY NOT-TAKING SUCRALFATE 1 GM TABLET 1 TABLET ON AN EMPTY STOMACH ORALLY TWICE A DAY NOT-TAKING DRISDOL 64041 UNIT CAPSULE 1 CAPSULE ORALLY NOT-TAKING PROBIOTIC CAPSULE ORALLY UNKNOWN CYMBALTA 30 MG CAPSULE DELAYED RELEASE PARTICLES 1 CAPSULE ORALLY DAILY TDD=90 MG UNKNOWN GABAPENTIN 600 MG TABLET 1 TABLET ORALLY Q 4 HRS MEDICATION LIST REVIEWED AND RECONCILED WITH THE PATIENT PAST MEDICAL HISTORY ASTHMA GERD HIATLE HERNIA HEARING LOSS HYPOTHYROID CLAUSTROPHOBIA ALLERGIES NAPROSYN: GI DISTRESS IVP DYE: RASH SHELLFISH: RASH SURGICAL HISTORY HERNIA 2005 CHOLECYSTECTOMY 2006 REVIEW OF SYSTEMS REVIEWED BY: PROVIDER: . CONSTITUTIONAL: ANY CHANGE IN YOUR MEDICAL CONDITION? NO . CHILLS NO . FEVER NO . INFECTION: DO YOU HAVE NEW INFECTIONS? NO . DO YOU HAVE HISTORY OF MRSA? NO . MUSCULOSKELETAL: ANY NEW PATTERNS OF PAIN OR NUMBNESS? NO . GASTROENTEROLOGY: ANY NEW CHANGE IN BOWEL CONTROL? NO . GENITOURINARY: ANY NEW CHANGE IN BLADDER CONTROL? NO . IS THERE A CHANCE YOU COULD BE ? NO . HEMATOLOGY/LYMPH: DO YOU TAKE ANY BLOOD THINNERS? (FOR EXAMPLE- COUMADIN, PLAVIX, AGGRENOX, PLATEL, PRADAXA, OR XARELTO) NO . WHEN WAS YOUR LAST DOSE? DATE: TIME: . NEUROLOGY: HAVE YOU FALLEN IN THE PAST 6 MONTHS? NO . ANY NEW EXTREMITY NUMBNESS OR WEAKNESS? NO . CARDIOLOGY: DO YOU HAVE A PACEMAKER OR DEFIBRILLATOR? NO . RESPIRATORY: HAVE YOU BEEN SICK IN THE PAST WEEK? NO . FEVER NO . FLU LIKE SYMPTOMS? NO . COUGH NO . INTEGUMENTARY: DO YOU HAVE ANY RASHES OR OPEN SORES? NO . ALLERGIC/IMMUNO: ARE YOU ALLERGIC TO SHELLFISH OR IV DYE? NO . ANY NEW ALLERGIES? NO . PSYCHIATRIC: DO YOU HAVE THOUGHTS OF HURTING YOURSELF OR SOMEONE ELSE? NO . ARE YOU ABUSED, NEGLECTED, OR IN AN UNSAFE ENVIRONMENT? NO . ENDOCRINOLOGY: ARE YOU DIABETIC? NO . OTHER: DO YOU NEED ANY PRESCRIPTIONS? NO . IF YES, PLEASE LIST: ____ . ANY NEW PROBLEMS WITH YOUR MEDICATIONS? YES, PT C/O IMPOTENCE WITH ZONISAMIDE. PT HAS STOPPED RX. . WHEN DID YOU LAST EAT? 06/19/17 2200 . WHEN DID YOU LAST DRINK? 06/20/17 0800 . WHAT DID YOU LAST DRINK? WATER . NAME OF PERSON DRIVING YOU HOME? -JR . DO YOU HAVE ANY OTHER QUESTIONS OR CONCERNS NO . VITAL SIGNS WT 238 LBS, HT 66 IN, BMI 38.41 INDEX, BP 139/90 MM HG, HR 84 /MIN, RR 16 /MIN, TEMP 98.8 F, OXYGEN SAT % 96, REVIEWED BY: NNEKA. ASSESSMENTS CERVICAL DISC DISORDER WITH RADICULOPATHY OF CERVICOTHORACIC REGION - M50.13 (PRIMARY) PROCEDURES PN CERVICAL EPIDURAL PRE PROCEDURE DIAGNOSIS CERVICAL DISC DISORDER WITH RADICULOPATHY POST PROCEDURE DIAGNOSIS CERVICAL DISC DISORDER WITH RADICULOPATHY PROCEDURE CERVICAL EPIDURAL STEROID INJECTION UNDER FLUOROSCOPIC GUIDANCE SURGEON DR. JULIO C JO ROLL SHOP SUPERVISOR NONE ANESTHESIA LOCAL PRE PROCEDURE NOTE THE PATIENT HAS A HISTORY OF CHRONIC CERVICAL PAIN. I EVALUATE THE PATIENT AND REVIEWED THE CHART. I WENT OVER THE RISKS, ALTERNATIVES, AND BENEFITS ASSOCIATED WITH THIS PROCEDURE. THE PATIENT WOULD LIKE TO PROCEED AND GIVE CONSENT TO PERFORMED THE PROCEDURE. THE PATIENT DENIES UNEXPLAINABLE WEIGHT LOSS, FEVER, CHILLS, OR NEW CHANGES IN URINARY OR BOWEL CONTROL DESCRIPTION OF PROCEDURE THE PATIENT WAS BROUGHT TO THE PROCEDURE ROOM AND PLACED IN THE PRONE POSITION. THE CERVICOTHORACIC AREA WAS CLEANED WITH BETADINE SOLUTION AND DRAPED ASEPTICALLY. THE PROCEDURE WAS DONE UNDER STERILE CONDITIONS. I CHECKED LATERALITY AND THE LEVEL WHERE THE PROCEDURE WAS GOING TO BE PERFORMED WITH THE PATIENT AND THE SUPPORTING STAFF AT THE MOMENT OF THE TIME OUT IN THE PROCEDURE ROOM. UNDER FLUOROSCOPIC GUIDANCE, THE TARGET WAS SELECTED AT THE INTERLAMINAR LEVEL OF C7-T1. LIDOCAINE WAS USED TO NUMB THE SKIN AND THE SUBCUTANEOUS TISSUE BELOW IT. EPIDURAL TUOHY NEEDLE 17-GAUGE WAS ADVANCED UNDER FLUOROSCOPIC GUIDANCE AND FOLLOWING PATIENT FEEDBACK UNTIL THE EPIDURAL SPACE WAS REACHED 6 CM DEEP INTO THE SKIN BY THE LOSS OF RESISTANCE TECHNIQUE. ISOVUE M DYE 30%, 0.25 ML, WAS INJECTED SHOWING ADEQUATE SPREAD OF THE DYE. THEN, A SOLUTION OF 3 ML OF NORMAL SALINE WITH DEPO-MEDROL 60 MG WAS INJECTED SLOWLY FOLLOWING PATIENT FEEDBACK. THERE WAS NO EVIDENCE OF BLOOD, PARESTHESIA OR CEREBROSPINAL FLUID DURING THE PROCEDURE. THE PATIENT WAS SENT TO THE RECOVERY ROOM. THE PATIENT WAS MOVING THE EXTREMITIES AND DOING WELL. THERE WAS NO COMPLICATION DURING THE PROCEDURE. FLUOROSCOPY TIME WAS 21 SECONDS POST PROCEDURE NOTE THE PATIENT WILL BE SEEN IN A FOLLOW UP IN THE NEXT FEW WEEKS. INSTRUCTIONS WERE GIVEN, QUESTIONS WERE ANSWERED, AND THE PATIENT EXPRESSED UNDERSTANDING AND AGREES WITH THE PLAN. I, SUSHANT BRITO, DOCUMENTED THE ABOVE INFORMATION ACTING A SCRIBE FOR DR. JO. I, DR. JO, HAVE REVIEWED THE ABOVE DOCUMENT, SCRIBED BY SUSHANT BRITO, AND I VERIFY THAT IT IS ACCURATE DIAGNOSTIC IMAGING [facility] FLUORO GUIDE SPINE INJECTION (PAIN)[id number] PROCEDURE CODES 57888 CERVICAL/THORACIC W/ IMAGING 6045F RADXPS IN END [id number] PXD DISPOSITION & COMMUNICATION FOLLOW UP 3 WEEKS ELECTRONICALLY SIGNED BY JULIO C JO MD ON 06/20/2017 AT 05:32 PM EDT DISCLAIMER : THIS IS A VISIT SUMMARY EXTRACTED FROM THE [employer] CHART. IT IS NOT A COPY OF THE [employer] PROGRESS NOTE. MTDD
== END ==
LOC: M PAIN 10:15
PROVIDERS: ATTEND Anesthesiology
DX: G89.29 Other chronic pain (principal); M50.13 Cervical disc disorder with radiculopathy, cervicothoracic region; J45.909 Unspecified asthma, uncomplicated; K21.9 Gastro-esophageal reflux disease without esophagitis; K44.9 Diaphragmatic hernia without obstruction or gangrene; E03.9 Hypothyroidism, unspecified; F40.240 Claustrophobia; Z91.013 Allergy to seafood; Z91.041 Radiographic dye allergy status; Z88.6 Allergy status to analgesic agent; Z79.891 Long term (current) use of opiate analgesic; Z79.899 Other long term (current) drug therapy
CPT/HCPCS: 62321; J1030; Q9967

== ENCOUNTER → 2017-07-10 | Outpatient (CLI) | payer BC, OTHER ==
[~2017-07-10] MED LIST changes: -ISOVUE-M 300 61% 15ML VIAL (Q9967) As Ordered ONE; -LIDOCAINE 1% SDV INJ 30 ML VIAL As Ordered ONE; -diazePAM 5 MG TAB As Ordered ONE; -diphenhydrAMINE 25 MG CAP As Ordered ONE; -methylPREDNISolone SUSP 40 MG/ML (DEPO-medrol) VIAL (J1030) As Ordered ONE; -oxyCODONE 5MG TAB As Ordered ONE
--- NOTE | 2017-08-06 00:04 | ECWPNPC ---
PATIENT NAME: SONI GILL : 1975 GENDER: MALE VISIT DATE: 07/10/2017 DISCHARGE DATE: 07/10/17 0953 VISIT LOCKED DATE TIME: PHYSICIAN: BRETT COOLEY RESOURCE: BRETT COOLEY HISTORY OF PRESENT ILLNESS HISTORY OF PRESENT ILLNESS: PAIN THE PATIENT DESCRIBES THE PAIN... FALL RISK SCREENING: SCREENING :NO FALLS IN THE PAST YEAR TODAY'S VISIT: NOTES: RATES PAIN TODAY 03/24. IS S/P CESB ON 06/20/17 . HAD SOME INTENSE DISCOMFORT IMMEDIATELY AFTER THE PROCEDURE BUT THEN THIS DID IMPROVE TO A DEGREE. NOTES ZONISAMIDE "NUMBS" SHARP BURNING RUBBER BAND SENSATION IN BOTH ARMS. IS HAVING A TREMOR IN BOTH UPPER EXTREMITIES. . CURRENT MEDICATIONS TAKING CYMBALTA 30 MG TABLET 1 TAB(S) ORALLY AT BEDTIME TAKING HYDROXYCHLOROQUINE SULFATE 200 MG TABLET 1 TABLET WITH FOOD OR MILK ORALLY BID, NOTES: OUT AND NOT TAKING TOO EXPENSIVE TAKING OMEPRAZOLE 40 MG CAPSULE DELAYED RELEASE 1 CAPSULE ORALLY TWICE A DAY TAKING PROBIOTIC ACIDOPHILUS CAPSULE ORALLY QD TAKING CYMBALTA 60 MG CAPSULE DELAYED RELEASE PARTICLES 1 CAPSULE ORALLY ONCE A DAY TDD=90 MG TAKING VITAMIN D (ERGOCALCIFEROL) 46778 UNIT CAPSULE 1 CAPSULE ORALLY WEEKLY TAKING SVETLANA ROOT 500 MG CAPSULE 2 CAPS ORALLY TWICE DAILY TAKING TESTOSTERONE 20 % CREAM DAILY TAKING ZONISAMIDE 25 MG CAPSULE 2 CAPSULES ORALLY TWICE A DAY TAKING GABAPENTIN 600 MG TABLET 1 TABLET ORALLY 5 TIMES A DAY TAKING SOMA 350 MG TABLET 1 TABLET NEEDED ORALLY THREE TIMES DAILY MDD=3 TAKING PERCOCET 7.5-325 MG TABLET 1 TABLET NEEDED ORALLY TAKE 1 TAB Q 4 HRS PRN PAIN MDD=5 NOT-TAKING LIDOCAINE 4 % CREAM DIRECTED EXTERNALLY APPLY TO PAINFUL AREA IN GROIN FOLDS Q 4 HOUS PRN PAIN, NOTES: NOT COVERED BY INSURANCE NOT-TAKING DICYCLOMINE HCL 20 MG TABLET 1 TABLET ORALLY TID NOT-TAKING DIGESTIVE ENZYMES TABLET ORALLY DAILY NOT-TAKING ALBUTEROL SULFATE (5 MG/ML) 0.5% NEBULIZATION SOLUTION 0.5 ML INHALATION THREE TIMES A DAY NOT-TAKING MELOXICAM 15 MG TABLET ORAL DAILY NOT-TAKING SUCRALFATE 1 GM TABLET 1 TABLET ON AN EMPTY STOMACH ORALLY TWICE A DAY NOT-TAKING DRISDOL 17905 UNIT CAPSULE 1 CAPSULE ORALLY NOT-TAKING PROBIOTIC CAPSULE ORALLY UNKNOWN CYMBALTA 30 MG CAPSULE DELAYED RELEASE PARTICLES 1 CAPSULE ORALLY DAILY TDD=90 MG UNKNOWN GABAPENTIN 600 MG TABLET 1 TABLET ORALLY Q 4 HRS MEDICATION LIST REVIEWED AND RECONCILED WITH THE PATIENT PAST MEDICAL HISTORY ASTHMA GERD HIATLE HERNIA HEARING LOSS HYPOTHYROID CLAUSTROPHOBIA ALLERGIES NAPROSYN: GI DISTRESS IVP DYE: RASH SHELLFISH: RASH REVIEW OF SYSTEMS REVIEWED BY: PROVIDER: BRETT JUAREZ . CONSTITUTIONAL: ANY CHANGE IN YOUR MEDICAL CONDITION? NO . CHILLS NO . FEVER NO . INFECTION: DO YOU HAVE NEW INFECTIONS? NO . DO YOU HAVE HISTORY OF MRSA? NO . MUSCULOSKELETAL: ANY NEW PATTERNS OF PAIN OR NUMBNESS? NO . GASTROENTEROLOGY: ANY NEW CHANGE IN BOWEL CONTROL? NO . GENITOURINARY: ANY NEW CHANGE IN BLADDER CONTROL? NO . IS THERE A CHANCE YOU COULD BE ? NO . HEMATOLOGY/LYMPH: DO YOU TAKE ANY BLOOD THINNERS? (FOR EXAMPLE- COUMADIN, PLAVIX, AGGRENOX, PLATEL, PRADAXA, OR XARELTO) NO . WHEN WAS YOUR LAST DOSE? DATE: TIME: . NEUROLOGY: HAVE YOU FALLEN IN THE PAST 6 MONTHS? NO . ANY NEW EXTREMITY NUMBNESS OR WEAKNESS? NO . CARDIOLOGY: DO YOU HAVE A PACEMAKER OR DEFIBRILLATOR? NO . RESPIRATORY: HAVE YOU BEEN SICK IN THE PAST WEEK? NO . FEVER NO . FLU LIKE SYMPTOMS? NO . COUGH NO . INTEGUMENTARY: DO YOU HAVE ANY RASHES OR OPEN SORES? NO . ALLERGIC/IMMUNO: ARE YOU ALLERGIC TO SHELLFISH OR IV DYE? YES SHELL FISH ALLERGY . ANY NEW ALLERGIES? NO . PSYCHIATRIC: DO YOU HAVE THOUGHTS OF HURTING YOURSELF OR SOMEONE ELSE? NO . ARE YOU ABUSED, NEGLECTED, OR IN AN UNSAFE ENVIRONMENT? NO . ENDOCRINOLOGY: ARE YOU DIABETIC? NO . OTHER: DO YOU NEED ANY PRESCRIPTIONS? YES " TALK TO VITO" . IF YES, PLEASE LIST: ____ . ANY NEW PROBLEMS WITH YOUR MEDICATIONS? NO . WHEN DID YOU LAST EAT? ____ . WHEN DID YOU LAST DRINK? ____ . WHAT DID YOU LAST DRINK? ____ . NAME OF PERSON DRIVING YOU HOME? ____ . DO YOU HAVE ANY OTHER QUESTIONS OR CONCERNS NO . MALE REPRODUCTIVE: PATIENT COMPLAINING OF ERECTILE DYSFUNCTION WITH ZONISAMIDE . VITAL SIGNS WT 233 LBS, HT 66 IN, BMI 37.60 INDEX, BP 149/94 MM HG. EXAMINATION GENERAL EXAMINATION: PSYCHALERT , ORIENTED X 3 , APPROPRIATE MOOD AND AFFECT . HEENT:THICK NECK. NO THYROMEGLY, NO LYMPHADENOPATHY. , NORMOCEPHALIC. LUNGS:CLEAR TO AUSCULTATION BILATERALLY. HEART:NORMAL S1S2, NO MURMURS, CLICK OR RUBS. MUSCULOSKELETAL:MUSCLE STRENGTH TESTING 5/5 BILATERAL DISTAL AND PROX IN UPPER AND LOWER EXTREMITIES. POINT TENDERNESS OVER CERVICAL SPINOUS PROCESSES AND OVER LUMBAR SPINOUS PROCESSES. CAN FLEX LUMBAR SPINE TO 60 DEGREES, AND ABLE TO COME TO MIDLINE ONLY DUE TO ABDOMENAL PAIN. POSTURE SLIGHTLY STOOPED. GAIT NONANTALGIC. NEUROLOGIC EXAM:NO TREMOR, NO MYOKYMIA OBSERVED, CN'S II-XII GROSSLY INTACT. DTR'S 2+ BILATERAL UPPER EXTREMITIES, 3+ BILATERAL LOWER EXTREMITIES. NO SENSORY DEFICEIT. DIAGNOSTIC TESTS REVIEWEDMRI OF CERVICAL SPINE COMPLETED 03/31/17 REVIEWED. 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 BRINGS IN MEDICATIONS WHICH IS APPROPRIATE FOR WHAT WAS DISPENSED. RECENT URINE TOXICOLOGY REVIEWED. NO UNAUTHORIZED MEDICATIONS. NO ILLICIT SUBSTANCES AND PRESCRIBED MEDICATIONS WERE PRESENT. PROCEDURE CODES FA211 ESTABILISHED PATIENT [facility] CHARGE DISPOSITION & COMMUNICATION FOLLOW UP 1 MONTH (REASON: NECK/GROIN PAIN) ELECTRONICALLY SIGNED BY DOMENICO LARA ON 08/05/2017 AT 07:47 PM EDT DISCLAIMER : THIS IS A VISIT SUMMARY EXTRACTED FROM THE [employer] CHART. IT IS NOT A COPY OF THE [employer] PROGRESS NOTE. MTDD
== END ==
LOC: M PAIN 08:45
PROVIDERS: ATTEND Nurse Practitioner Family
DX: G89.29 Other chronic pain (principal); M50.13 Cervical disc disorder with radiculopathy, cervicothoracic region; G57.92 Unspecified mononeuropathy of left lower limb; Z79.899 Other long term (current) drug therapy; Z79.891 Long term (current) use of opiate analgesic; J45.909 Unspecified asthma, uncomplicated; E03.9 Hypothyroidism, unspecified; F40.240 Claustrophobia; H91.90 Unspecified hearing loss, unspecified ear; K44.9 Diaphragmatic hernia without obstruction or gangrene; Z88.6 Allergy status to analgesic agent; Z91.041 Radiographic dye allergy status; Z91.013 Allergy to seafood

== ENCOUNTER → 2017-08-09 | Outpatient (CLI) | payer BC, OTHER ==
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
== END ==
LOC: M PAIN 09:15
PROVIDERS: ATTEND Nurse Practitioner Family
DX: M50.13 Cervical disc disorder with radiculopathy, cervicothoracic region (principal); G57.92 Unspecified mononeuropathy of left lower limb; F41.9 Anxiety disorder, unspecified; Z79.899 Other long term (current) drug therapy; Z79.891 Long term (current) use of opiate analgesic; Z88.8 Allergy status to other drugs, medicaments and biological substances; Z91.041 Radiographic dye allergy status; Z91.013 Allergy to seafood

== ENCOUNTER → 2018-11-19 | Outpatient (REF) | payer BC ==
[~2018-11-19] MED LIST changes: -DRIS50002 PO; +DRIS50003 PO; +NABU-126 PO; -NABU500T PO
[2018-11-19 19:05] LABS: HEMATOCRIT 40.9 % (42.0-52.0); HEMOGLOBIN 14.1 g/dl (13.5-17.5); MEAN CORPUSCULAR HEMOGLOBIN 30.7 pg (27.0-33.0); MEAN CORPUSCULAR HGB CONC 34.5 g/dl (32.0-36.5); MEAN CORPUSCULAR VOLUME 88.9 fl (80.0-96.0); PLATELET COUNT, AUTOMATED 201 10^3/uL (150-450); WHITE BLOOD COUNT 7.4 10^3/uL (4.0-10.0)
[2018-11-19 19:37] LABS: ALBUMIN 4.5 GM/DL (3.2-5.2); ALT/SGPT 17 U/L (12-78); BILIRUBIN,TOTAL 0.3 MG/DL (0.2-1.0); BLOOD UREA NITROGEN 9 MG/DL (7-18); CALCIUM LEVEL 8.7 MG/DL (8.5-10.1); CARBON DIOXIDE LEVEL 29 MEQ/L (21-32); CHLORIDE LEVEL 105 MEQ/L (98-107); CREATININE FOR GFR 0.95 MG/DL (0.70-1.30); GLOMERULAR FILTRATION RATE > 60.0 (>60); GLUCOSE, FASTING 78 MG/DL (70-100); POTASSIUM SERUM 3.9 MEQ/L (3.5-5.1); RHEUMATOID FACTOR QUANT < 10.0 IU/ML (<15.0); SODIUM LEVEL 139 MEQ/L (136-145); TOTAL PROTEIN 6.7 GM/DL (6.4-8.2)
[2018-11-21 14:16] LABS: ANTINUCLEAR ANTIBODIES DIRECT Negative (Negative)
[2018-11-22 00:07] LABS: CYCLIC CITRULLINATED PEPTIDE 8 units (0-19)
== END ==
LOC: M SFHCPLAZ 14:42
PROVIDERS: ATTEND Nurse Practitioner Adult Health
DX: Z00.00 Encounter for general adult medical examination without abnormal findings (principal); M06.9 Rheumatoid arthritis, unspecified

== ENCOUNTER → 2019-01-14 | Outpatient (REF) | payer BC | LOC: M SFHCPLAZ 08:17 | PROVIDERS: ATTEND Internal Medicine Rheumatology | DX: M06.09 Rheumatoid arthritis without rheumatoid factor, multiple sites (principal) ==

== ENCOUNTER → 2019-06-25 | Outpatient (CLI) | payer BC ==
[~2019-06-25] MED LIST changes: -/ARTH50TA PO; -/DULO30CA OR; -/ONDA4TA OR; -/PANT40TA PO; -/SUCR1TA; -/SUCR1TA PO; +ARTH1TAB4 PO; +CYMB1CAP5 OR; -LIDO5OI EXT; +LIDO5OIN11 EXT; +ONDA-1 OR; +PROT1TAB2 PO; +SUCR1TAB56; +SUCR1TAB56 PO
--- NOTE | 2019-06-25 11:02 | REP ---
Right upper quadrant sonography: History: Right upper quadrant pain and epigastric pain. Findings: The gallbladder is surgically absent. Scanning through the right upper quadrant of the abdomen demonstrates no evidence of focal liver lesion. Liver is not felt to be enlarged. Common bile duct is normal measuring 0.4 cm in greatest diameter. Limited views of the pancreas show no abnormality. There is no evidence of right renal abnormality. No free fluid is noted. The right kidney measures 11.5 x 6.0 x 4.2 cm. Impression: Negative right upper quadrant sonography post cholecystectomy. Electronically Signed by Lane Baker MD 06/25/2019 10:53 A
== END ==
LOC: M RAD 07:32
PROVIDERS: ATTEND Nurse Practitioner Adult Health
DX: R10.84 Generalized abdominal pain (principal); Z90.49 Acquired absence of other specified parts of digestive tract

== ENCOUNTER → 2020-05-28 | Outpatient (REF) | payer BC ==
[~2020-05-28] MED LIST changes: -NABU-126 PO; +NABU-51 PO
[2020-07-21 18:26] LABS: ALBUMIN 4.2 GM/DL (3.2-5.2); ALT/SGPT 20 U/L (12-78); BILIRUBIN,TOTAL 0.5 MG/DL (0.2-1.0); BLOOD UREA NITROGEN 11 MG/DL (7-18); CALCIUM LEVEL 9.2 MG/DL (8.5-10.1); CARBON DIOXIDE LEVEL 29 MEQ/L (21-32); CHLORIDE LEVEL 109 MEQ/L (98-107); CREATININE FOR GFR 1.02 MG/DL (0.70-1.30); GLOMERULAR FILTRATION RATE > 60.0 (>60); GLUCOSE, FASTING 101 MG/DL (70-100); HEMOGLOBIN A1c 5.1 %; POTASSIUM SERUM 4.6 MEQ/L (3.5-5.1); SODIUM LEVEL 141 MEQ/L (136-145)
== END ==
LOC: M SFHCPLAZ 16:58
PROVIDERS: ATTEND Nurse Practitioner Adult Health
DX: Z00.00 Encounter for general adult medical examination without abnormal findings (principal); Z83.3 Family history of diabetes mellitus; Z13.29 Encounter for screening for other suspected endocrine disorder

== ENCOUNTER → 2021-01-10 | Outpatient (REF) | payer BC ==
[2021-01-10 18:37] LABS: ALBUMIN 4.8 GM/DL (3.2-5.2); ALT/SGPT 29 U/L (12-78); BILIRUBIN,TOTAL 0.3 MG/DL (0.2-1.0); BLOOD UREA NITROGEN 12 MG/DL (7-18); CALCIUM LEVEL 9.5 MG/DL (8.5-10.1); CARBON DIOXIDE LEVEL 28 MEQ/L (21-32); CHLORIDE LEVEL 106 MEQ/L (98-107); CREATININE FOR GFR 0.99 MG/DL (0.70-1.30); GLOMERULAR FILTRATION RATE > 60.0 (>60); GLUCOSE, FASTING 107 MG/DL (70-100); POTASSIUM SERUM 4.9 MEQ/L (3.5-5.1); RHEUMATOID FACTOR QUANT < 10.0 IU/ML (<15.0); SODIUM LEVEL 142 MEQ/L (136-145); TOTAL PROTEIN 8.1 GM/DL (6.4-8.2)
== END ==
LOC: M LAB REF 16:31
PROVIDERS: ATTEND Physician Assistant
DX: R53.83 Other fatigue (principal); R42 Dizziness and giddiness

== ENCOUNTER 2021-09-07 22:01 | Emergency (ER) | payer BC ==
[~2021-09-07 22:01] MED LIST changes: -NABU-51 PO; +NABU-71 PO
--- OUTSIDE RECORDS SUMMARY | 2021-09-07 22:06 | CCD ---
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 [id number] ANSI-Commercial [id number] Problems, Conditions, and Diagnoses Code Display Name Description Problem Type Effective Dates Data Source(s) K43.2 Incisional hernia without obstruction or gangrene Incisional hernia without obstruction or Diagnosis 09/01/2021 11:13:37 AM [facility] K43.2 Incisional hernia, without obstruction o r gangrene Incisional hernia, without obstruction or gangrene [id number] 07/08/2021 12:00:00 AM EDT [facility] [id number] Allergic asthma without status asthmatic us Allergic asthma without status asthmaticus Problem 07/29/2020 12:00:00 AM EDT [facility] Surgeries/Procedures No Information Results ID Date Data Source [id number] 08/11/2021 08:30:00 AM EDT [facility] Name Value Range Interpretation Code Description Data Ariela rce(s) Supporting Document(s) EGD-Colonoscopy [facility] KOAGPl5fNlHDOlQtGKSyBrkBWTuzWIbiUTVfQ8E8ZNqzYd0CZVwhnlRsBIEqXr1+DPBrPX8yvx3qXGHe gMy [file] 0GrRGb0O/a5KHV/rubén/MTvtohRmlr5g+N+RpF2j0w/aozukpINjYL2ALmgWomvCCQqqpMaVqaUfa3yJj7 [file] +RED DEVIL/uWKmGvORkHBv5n/LFN6kU84JLjdWb8zlOtIE+sbxxPSZbJ50lmbYexYqxv83i1ue+ONybH+tI9Z [file] b0unKoHhlMeksxV6TtLGqwTFLyK9jPUCGtp/Farmworker Machine+PC [file] EyfpnniUU+ebwSkG3qyHQ0nrPWdL5R28kDw17Cm3VTBXcEN5xIQiuZyLwvt77YnjjUjbRdvc+fugk/RELAY OPERATOR GPM1CccAJN8TBCFMKX7w5a/kUjdpa9r2YH86RcP/Ou Xgr135toJ6V0dcQhBh59SMDiPdCSiDZhmN+MlXq+hht6vcb1j3CYjm5gD6bkWR3ZmyfyvFgpL64GbUfE nTzNUNt/IWpOjfpan2QYrHM5u1zwXYfccQ4lAePaNr9sCpOu/PZGC0Ziwngw/34hNSrz6vGYeKkB/YwY T50LhzDRvkfHNzftz5T+6tBC+kywai/g5vRsGUZDcd vR7BCRBwT26qFdBQSatGviz6Rc+Nwnwra7wR0a/uXOd5sCDPSH0VnfJhQfAprfE6V0nSDE7+gdF2qzmn I2nebYCa8y6iL4K0yKKEkmzZhvgFsVulHt5IUU60jqO3zpSy+pOfDqgD8qhhJuQDdBmf8w9EQvhHB4cM Do4EQu+yAumfnaTNLd0X3tyI94nQ/REyXthZr0QcLx BfGeIHJY+5FT50SfqW7fwj+UgEac7KhIodyvHSucc2EifGHwX8rIAYQE7ihVmJUcjcUIiWRf3wrnkGRi Awt6M+QFDWzPZvvxd5a730qTl1Sq6OBbPvLW9cvUoXwyUrVMDkz8H7hxsL1WhD0x3DUcM6K4nuLW2YcG Ful7dN+V2bNS2J4nGs6venhQ4JHHQA7VPuar+ZuHC1 q1pdAleQ0ygqA9lxx7eqvgJ/8JYMRC+x+iJ/twPeclGRj1tXxRN6SyRj7a2MBYYyeMoC9OxnUVen6skQ yhueXBAolaqFhCMPm5fCPdHH08LIwiIATS1l3qzJnvi7wZ0npXLpOfIwr5/T+DCrLW3w7hXWgMGqbFVs ihXKhhff1+PkU8WPo6V3vFI+/zLbJGJ/xCJEfEz/MATT [file] N0udGmfEdOJZF1AbUMM+g+BctxvLW7842VMWUA [file] v/16oOuOlqTef7Y0ewGPMtCsDC87/wax pattern repairer/r1WK3hL3N [file] eRPilw/64G86V92GMAs0ymG3CQKPRnwmnjI4wc+e3T3/HaBgVe8tt2JKQQDz/Education Director/JFYvEkcIC8BR2rna J3+eK7lx49meR3vBicTAbIXrqqAIootaqwp0QkCy6Cx6LI2Xmg2dF79nQC9c9Gmy3qUWmttpzIgJaVjh Gandhi+9K1MHmLJttb1o8nEvu7e65gunIp3led64gQeDF TJdGE62M9unBlqvC12/zAIpfwbsGT5oTJi/9JXLMSSLhu4O945j7+6hqp5WsqL4J7UCrOC3LdQjKcrn3 ZPIXWzNij9ulRBNLIxjaQRtvgoj5YuY8+6VFqzFP1WizEtv9dcGKG1o8xVeizkQYW8K/Kvoh4cJOTzqH ZWikRpd/uX2Y6sNLWeHHO6L0XVUhQ1j9u1B6MiJioa D8Veg6H5wVh/xraLVGj3/dRr4POAqQ7CIO4pDU2tRNackWkq5+3AAQfDfZvAbNjC1+qUl4CUjQpITosn D4xYyBCskcEXOvCc7J+b/PoWFCmfFeVMaMVG7bftXudQxqUrMClyXlyqi/x30eQuOhK6dXeYeHar8KQ6 0wtnjfojFH8n+YqvLWnZOo16rCI43puhvS/DWrpSqd odRr8TZPv2+ZJHDBDfP+/XWufC+MUoMsMyFozHQK/J4lxU463Y+txbPl5QEYL2YfjinUxDS0P5/bk8Ez dY9IuXJUMRlDUoacbDQiSi56xlhsuQT4VwyjX33MsGEPsha7Cgo+PzSg0neXcUO4EyW6fSREY/mm+Ql6 fR68FjgzktwhIwvV7zwCJqUdw/Marcos+LCNws1Ol5iaf [file] sheep shearer+/fazlljz8pAqTaY5ZCAyd36igS074W9YTo7zq5M [file] sceaSvZluFUGcxgYDjhSynUKQOMzhkRJUjGF1CDOIES3I= ID Date Data Source [id number] 08/04/2021 01:20:36 PM EDT [facility]FORMATION[facility] MR[facility] Name Date of Age Gend*PT [id number] Robi Mcconnell 1975 45 years M ---PT Location Admission Date/Time Visit ID Attending Provider --- --- --- --- EPI ID CSN Admitting Provider [id number] ---Subjective:Returns after CT scan has incisional hernia, no obvious inguinal hernias.HPI 07/08/21maria esther Mcconnell is a 45 years old male who was referred for evaluation of anincisional hernia. Patient has symptoms of bulging, hernia pain, which are madeworse with coughing, lifting. Symptoms were first noted several years ago.Symptoms did not start at work. Pain is dull, intermittent. Lump is reducible.The patient has no symptoms of chronic constipation, chronic cough, difficultyurinating.Hx of traumatic injury from work 2016. 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 This causedtraumatic injury to liver and perforated small bowel. Subsequently had ex lap,bowel resection.Hx of cholecystectomy.Hx of bilateral inguinal hernias, has 3d max in both groins.There is no height or weight on file to calculate BMI.Smoker: Former, >30 years agoDiabetes: noImaging:CT abd/pel 08/04/21Incisional hernia presentNo inguinal herniasPast medical history:Past Medical History:Diagnosis Date GERD (gastroesophageal reflux disease)Past surgical history:Past Surgical History:Procedure Laterality Date CHOLECYSTECTOMY HERNIA REPAIRSocial history:Social HistoryTobacco Use Smoking status: Former SmokerSubstance Use Topics Alcohol use: Yes Comment: once in a while Drug use: NeverMedications:Current Outpatient Medications: ibuprofen (ADVIL,MOTRIN) 100 MG/5ML suspension, Take by mouth every 6 (six)hours as needed, Disp: , Rfl: omeprazole (PriLOSEC) 40 MG capsule, Take 40 mg by mouth daily, Disp: , Rfl: Prevalite 4 g packet, TAKE 1 PACKET BY MOUTH TWICE A DAY, Disp: , Rfl:Review of SystemsRespiratory: negative for cough, dyspnea on exertion, stridor and wheezingCardiovascular: negative for chest pain, chest pressure/discomfort,claudication, exertional chest pressure/discomfort, irregular heart beat andpalpitationsHematologic/lymphatic: negative for bleeding, easy bruising, petechiae and hx ofbleeding disorderObjective:ExamThere were no vitals taken for this visit.Cardiovascular: Normal rate, regular rhythm and normal heart sounds.Pulmonary/Chest: Effort normal and breath sounds normal. No respiratorydistress.Abdominal: Soft. Exhibits no distension. There is no tenderness. incisionalhernia measures approximately 10 cm x 10 cm. Is reducible. No skin changes.Possible small inguinal hernias.Assessment:Incisional hernia which is easily reduciblePlan:1. Discussed the nature of incisional hernias, explained natural progression andrisks of nonoperative management (enlargement, increased symptoms, obstruction,strangulation). Discussed risks of surgery including but are not limited to:bleeding, wound infection, mesh infection requiring reoperation and removal,scarring, chronic pain, recurrent hernia, postoperative ileus, bowelobstruction. Also discussed the risks of general anesthetic including AK, CVA,sudden or even reaction to anesthetic medications. Should the p atientexperience any significant pain, particularly in the setting of a hard, painfullump he/she should contact the office immediately or present to the emergencydepartment as this would represent a surgical emergency. The patientunderstands and is agreeable to proceed with surgery. All questions wereanswered.2. Smoking cessation: n/a3. HA1C: n/a4. Patient has elected to proceed with surgical treatment. Will schedule forrobotic incisional hernia repair with bilateral transversus abdominus release [facility] on 11/18/20.5. Follow up: October to review surgery and repeat examSignature: Nikita Hale, MDDate: August 04, 2021Time: 1:19 PM Name Value Range Interpretation Code Description Data Ariela rce(s) Supporting Document(s) ID Date Data Source [id number] 08/04/2021 11:40:00 AM EDT [facility] A BDOMEN PELVIS WO IV CONTRASTCLINICAL HISTORY: Abdominal pain, hernia suspected.COMPARISON: None available.TECHNIQUE: Helical acquisition performed through the abdomen and pelvis.Coronal and sagittal reformations made. Oral and IV contrast not ordered.FINDINGS: Lower chest: There are few calcified granulomas in the right middle lobe. Small calcified right hilar nodes. Very mild patchy right lower lobe airspace disease compatible with atelectasis versus very mild pneumonia. 2 mm right lower lobe noncalcified pulmonary nodule image number 6. This may rep resent a noncalcified granuloma. Rest of visualized bases are clear. The lower mediastinal structures are unremarkable.Abdomen: Evaluation of the intra-organs and bowel is slightly suboptimal due to lack of oral IV contrast material.There is a supraumbilical of midline abdominal wall hernia containing noncomplicated loops of small bowel. Neck of hernia measures 4.2 cm in transverse diameter. Hernia sac measures 4.3 transverse by 5 cm in craniocaudad dimension. Areas of increased density midline abdominal wall above the level of the hernia may represent suture material.Liver: Unremarkable.Gallbladder: Unremarkable.Pancreas: Unremarkable.Spleen: Unremarkable.Adrenal Glands: Unremarkable.Kidneys: Water density cyst lower pole left kidney measuring 4.4 cm. Otherwise, unremarkable.Aorta: Unremarkable.IVC: Unremarkable.Bowel: Suture material associated the small bowel. No bowel dilatation. No appendicitis. No ascites or free intraperitoneal air.Bones: Spondylolisthesis at L5-S1 of 10 mm secondary to bilateral L5 spondylolysis. Severe degenerative disc disease at L5-S1 level..Pelvis:Prostate gland measures 4.5 cm in transverse diameter containing a few intrinsic calcifications. Surgical clips seen within the pelvis. The bladder is unremarkable. No abnormal masses, free fluid, or adenopathy seen.IMPRESSION: Supraumbilical midline abdominal wall hernia containing non complicated lose of small bowel.Suture material associated the small bowel. No bowel dilatation.4.4 cm water density lower pole left renal cyst.Prostatic enlargement.Spondylolisthesis at L5-S1 level of 10 mm secondary to bilateral L5 spondylolysis.Calcified right middle lobe granulomas and right hilar nodes compatible prior granulomatous infection. 2 mm noncalcified right lower lobe pulmonary nodule. Follow-up per Fleischner Society recommendation guidelines. Alternately, chest CT could be obtained to exclude additional nodules and serve as baseline for subsequent follow up studies.Very mild right lower lobe pneumonia versus atelectasis.Results communicated to referring clinician's office by our office staff.Fleischner Society Recommendation for Pulmonary Nodule follow-up Single Solid Nodule Low risk:<6 mm- No routine follow up6-8 mm- CT at 6 to 12 months; then consider CT at 18 to 24 months>8 mm- Consider CT at 3 months, PET/CT, or tissue samplingNodules <6 mm do not require routine follow-up, but certain patients at high risk with suspicious nodule morphology, upper lobe location, or both may warrant 12-month follow-up (recommendation 1A).Single Solid Nodule High risk:<6 mm- Optional CT at 12 months6-8 mm- CT at 6-12 months, then CT at 18-24 months>8 mm- Consider CT at 3 months, PET/CT, or tissue samplingNodules <6 mm do not require routine follow- up, but certain patients at high risk with suspicious nodule morphology, upper lobe location, or both may warrant 12-month follow-up (recommendation 1A).Multiple Solid Nodules Low risk:<6 mm- No routine jxxfln-bn7-7 mm- CT at 3-6 months, then consider CT at 18-24 months>8 mm- CT at 3-6 months, then consider CT at 18-24 monthsUse most suspicious nodule as guide to management. Follow-up intervals may vary according to size and risk (recommendation 2A).Multiple Solid Nodules High risk:<6 mm- Optional CT at 12 months6-8 mm- CT at 3-6 months, then at 18-24 months>8 mm- CT at 3-6 months, then at 18-24 monthsUse most suspicious nodule as guide to management. Follow-up intervals may vary according to size and risk (recommendation 2A).Single Subsolid Nodule:Ground Glass:<6 mm- No routine follow-up> or equal to 6 mm- CT at 6-12 months to confirm persistence, then CT every 2 years until 5 yearsIn certain suspicious nodules <6 mm, consider follow up at 2 and 4 years. If solid component(s) or growth develops, consider resection. (recommendation 3A-4A)Part Solid:<6 mm- No routine follow-up> or equal to 6 mm- CT at 3-6 months to confirm persistence. If unchanged and solid component remains <6 mm, annual CT should be performed for 5 years.In practice, part-solid nodules can be defined as such until > or equal to 6 mm, and nodules <6 mm do not usually require follow-up. Persistent part-solid nodules with solid components > or equal to 6 mm should be considered highly suspicious. (recommendation 4A-4C)Multiple Subsolid Nodules:<6 mm- CT at 3-6 months. If stable, consider CT at 2 and 4 years.> or equal to 6 mm- CT at 3-6 months. Subsequent management based on the most suspicious nodule(s).Multiple <6 mm pure ground-glass nodules are usually benign, but consider follow-up in selected patients at high risk at 2 and 4 years (recommendation 5A).Low Risk patient: Minimal or absent history of smoking and/or other known risk factors.High Risk patient: History of smoking or other known risk factors (e.g. first degree relative with lung cancer or exposure to asbestos, radon, uranium).Dictated by: TERESA VOGT M.D. on 08/04/2021lectronically Signed by: TERESA VOGT M.D. on 08/04/2021 01:43 PMTranscribed by: jh on 08/04/2021 01:43 PMCDS G code: ,CDS Modifier: ,cc: Name Value Range Interpretation Code Description Data Ariela rce(s) Supporting Document(s) ID Date Data Source [id number] 07/08/2021 10:23:50 AM EDT [facility]FORMATIONPatient MRN Name Date of Age Gend*PT [id number] Robi Mcconnell 1975 45 years M ---PT Location Admission Date/Time Visit ID Attending Provider --- --- --- --- EPI ID CSN Admitting Provider [id number] ---Subjective:Robi Mcconnell is a 45 years old male who was referred for evaluation of anincisional hernia. Patient has symptoms of bulging, hernia pain, which are madeworse with coughing, lifting. Symptoms were first noted several years ago.Symptoms did not start at work. Pain is dull, intermittent. Lump is reducible.The patient has no symptoms of chronic constipation, chronic cough, difficultyurinating.Hx of traumatic injury from work 2017. 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 Thi s causedtraumatic injury to liver and perforated small bowel. Subsequently had ex lap,bowel resection.Hx of cholecystectomy.Hx of bilateral inguinal hernias, has 3d max in both groins.Body mass index is 31.32 kg/m .Smoker: Former, >30 years agoDiabetes: noImaging:nonePast medical history:Past Medical History:Diagnosis Date GERD (gastroesophageal reflux disease)Past surgical history:Past Surgical History:Procedure Laterality Date CHOLECYSTECTOMY HERNIA REPAIRSocial history:Social HistoryTobacco Use Smoking status: Former SmokerSubstance Use Topics Alcohol use: Yes Comment: once in a while Drug use: NeverMedications:Current Outpatient Medications: ibuprofen (ADVIL,MOTRIN) 100 MG/5ML suspension, Take by mouth every 6 (six)hours as needed, Disp: , Rfl: omeprazole (PriLOSEC) 40 MG capsule, Take 40 mg by mouth daily, Disp: , Rfl: Prevalite 4 g packet, TAKE 1 PACKET BY MOUTH TWICE A DAY, Disp: , Rfl:Review of SystemsRespiratory: negative for cough, dyspnea on exertion, stridor and wheezingCardiovascular: negative for chest pain, chest pressure/discomfort,claudication, exertional chest pressure/discomfort, irregular heart beat andpalpitationsHematologic/lymphatic: negative for bleeding, easy bruising, petechiae and hx ofbleeding disorderObjective:ExamBP (!) 146/91 (BP Location: Right upper arm, Patient Position: Sitting) | [id number] | Ht 1.702 m (5' 7") | Wt 90.7 kg (200 lb) | BMI 31.32 kg/m Cardiovascular: Normal rate, regular rhythm and normal heart sounds.Pulmonary/Chest: Effort normal and breath sounds normal. No respiratorydistress.Abdominal: Soft. Exhibits no distension. There is no tenderness. incisionalhernia measures approximately 10 cm x 10 cm. Is reducible. No skin changes.Possible small inguinal hernias.Assessment:Incisional hernia which is easily reduciblePlan:1. Discussed the nature of incisional hernias, explained natural progression andrisks of nonoperative management (enlargement, increased symptoms, obstruction,strangulation). He will need hernia surgery. Will proceed with CT scan tobetter delineate hernia size and if inguinal hernias are present.2. Will try to get CT and office visit in same day given his travel requirements3. Follow up: After CT scanSignature: Nikita Hale, MDDate: July 08, 2021Time: 10:18 AM Name Value Range Interpretation Code Description Data Ariela rce(s) Supporting Document(s) ID Date Data Source [id number] 06/22/2021 09:00:00 AM EDT [facility] Name Value Range Interpretation Code Description Data Ariela rce(s) Supporting Document(s) Follow Up [facility] ITSJXg2pGxRBCnDaZTHmZehMKTljMGttQWKhT3N4OOipAw3CXQcmafIfBSRvXk1+WYMnWK0lpk4eIIXs gMy [file] Surgical Dressing Maker/nbvGz8p/dxp883UEdVLeiV9G9OzwstmH4zFFFGsP0XAZLJOPjPmOs51GSLGPIUqoFE5It9xqfaui [file] qvvLB7JFSfPMa9ScOlSHQCbeZ7Jyc8OeTHjVjQ6/sheep shearer [file] wsr7ZmtGyh4xBRkl+qs8F8bt7jtDav2yi6qHdvO2/EcHpSCj7C9gAhndWHAUV5PP6NygUDk8/+O/Rubén+n [file] KUF9/bLuM6bPake9Ck03li1ElIm+rubén/itKkPvjR9q0U/6G0Q5JNy1J6U5duM/CN6nZ5gXLFVe5O4WHdv [file] A7n6hUuvPUMPHLzxhlEd/q0ZDHeHBGs6DhK5JtC0cvYF/owjJpQ9NNwgHK4/mHHjy/INELh/CNC OPERATOR PROGRAMMER+4mewH iho5wGTUF6OhBO90ZEJX+dwRGH2RotyZT8bwqFMiZHdTS+nJWScKtEkMdweW65qoHEo6qMyfRISRJn9s 3e6VwNlwypsOXg12qMpfyHvcAUHBohk9X/7VYtG/I5 F9CipAFcuYe1akyIqPRgZbaRnhDOE57XuYBd0mEKBl961KgwCodeiNO/3p0dG2EPpDXn2LzWG5VnL56f 0jmvP30IV0XcyoUPFz6hgWPpPh9UyEyXLPmQbtQEN3arMherk0HTaDhKVqZ3aG8f4piNJhivR4nRh+8L xJur+neJ9JMRKSl8lHw+DzvrPZ4lSFfesYL6xHW/Xc h9izsKCz9i0JnBf6fDzNk9pd4oAO7au5LW7xsVaxmh/TVf2HfEHVOxkzj5UIhT4rFRHM1z/opHhfwt09 XZBqYdogiVWJWlu0aUZ+MSSa8UNjmm84yBBlSdsY44/hsrc4X++f1m18i4QMypFmn2Nrg8/Y/lDhHHu9 mbvp3CBQzkCpfB0KPeDJM13uyGWVcyDbltMp89b0T1 2NKbbhGHCmD9KWwfUm15C02pQxYY+o3OAcKjARByMEQgLkW0JhUUMWdejiZ4PSWU621unktZxiPwukXL O9gaO86x+6xzzUoKEI5OQKitvOKn5Kp23d5C7XztGuNQCEKJhUV4Z37PUWetTpBh5gS9v801bsl12elh WIv4fmSYgSad3/W55gtjV0+cortes+ThuvHOY8C9DOc4yS [file] XSz8DDCm1+axtzi2s7XH3MsnQBc2heFzP5e2rM4EHrX+systematic theology [file] Education Director/+7ishISw45c7Qc67GpUOxb663mK6GBVz7gz42YvwshJrsRuIrx+Jb7zszgXmU+6/mtR5KmgkdXSRZ f7qhB6j3Z1JgLHErHVx7gPmeiJ1ILRADjy8XNx7hYaNMtEZ9PC7bLop1LNCU55m7KRbPfM/OTY8E7ZfC t9MBSX45ZUKKB2hvAM8XJPGuSZIAV8dqkeV/croQAZ [file] 8keQkQLH8M6aPDcBTutYNqgv1EUVBaZiqZg97HqHdJPdgBAyIKUsSBoYcmvAHFDMeEUhn1LWpVaN+emergency vehicle operations instructor [file] Ge9vs5SvoEoEqoJNrQ3xQk1BFjZE4oVDv+Education Director/1P0qg [file] /eurOIJ68InOal21W6+k3Qy/chair trimmer+yn9UP68mtSNsDUyJqyz5cccxtXCBmI5dktMY/JlgqjSGCFm/tBr6 [file] Juan Jose+99zRdnoPcfIP5PYw20aR4WkckyW8VPPEBX3edQthATYMiOZCMFykuKXxCXe6oCVKLPsW1o/hSeDC [file] ZWa22NxSp6wd/hot strip finisher/vNaXroL6YEXIdIiP/Js9iXaSQfIkuCqkuoODwBDrMtwiURhHXslT1EbLV97rawh [file] 15RtBjug2r5bR+ibTQ42I/greenhouse laborer+jevHcr09byus8SZzZynu1OVwFFzCGeJjS7f2VpS1D7K52LoqifKyXq [file] bX/GZT3FiKt9Ujzr6V7QShgllYbRTYIFpaoUP1+sFOov9dXlBLWxnt4S8GpB/evp operations+vYdP9LfDOrcku+OP [file] DsawTPfdZaWwOVN0WDUf/bDfe+TSuHpWn3Rcn///Slovak Q7t3g8S6ZUBA/UVstGzS4kO3j8b1YEj24xa969OEn3qJDBbUXEsB4HFgg091tGfgY8+kAQfb28oDJEH9 bObwm4xbCxNgwO+tw7tZMD2uvBB7gsptf+SUWZXHnjv9h9v+jQRCKBlB170ls45mQw53p2s/exploration driller+W8EH [file] R D Manager+9bxXDPVeasgiNV1Y+9YqfV7+rQLfBS39/SDRQM ixWk6WuxqBZE0fNGaTXWcCxHt2QImGGMlURI5rEhGaei9P1BNL4Rf3JvXeo86DLHGCslkZYhOt3wDdN3 lUWqyslkbmWEH4oTkUfSyT91sScXACfUDNbhLZ43RPD3EbmWo9Il/Jx8szQR/G+Ee8a9mhVA8DJtrqzL y/V269ey+WdeXpdpqdEbutyrNzZXAswqlfuFUdrrxa [file] C8p+AbpflCKB14Bba/2eYQbM+2fIvEHITtjQEhY/Bautista 54TMrW/XjEfR3s9mZQXL6smMebbeetdyQ8b5rqkLCa2/Im9H6GkAZC4tdA5TqmlRudk8+4A59uVZ7HRp O9kFwrF7bbLFnN0sAVKndAY2MEL913s6e8BPdWfkQVuzcdFVii2PHqzQaWQ4DiG3SZ/OYRVR3THVB1yj EHJ6DE7JlnY88iIiGqa2xeehUAeeZASV/TFN3hlVOR eiJdjbmSM0xknbBMb8GQlK8p4htlB+9dOercYk9/7ebrg8tz42nhARpCTXr9YD88zc2UXPbzulE+70ah Xhd110QPD6dC+02r5GmmF16Ba0Png3bZcIzdysNukOTnHr/yhSn4Lk4xaZmcPeRcXyk1TqASMJ8lkCMn YPyGpe0MMdmDiesNO+Pi1mM7nYII9yrhUXEUaTWLpH K9Y8Fc3NnTRP3snr1n336Ekd2gPIiRiUQHUTEQdsp9ni9kMm4rXF89tiRUxPG8/sekSH3JSpi0hNGyE/ hO+V2R28QzZNS+U8ItZaHXGedqSFr9G/XLmxtqGz4YryGz2LMHS8sr8Kwu8iSOA5qsiVJEtthHXem0jW +6PoVLfrOKkhOyUg/xn52IE1pe/2br8LaTKLSGdyzX GgiV9IXPIFbUIodyxl7R0q0tebXbyAw10U5gIS9r7KtOtA7mpqNSXnGzLshNZoDQ5V3apI5wY15aaQMg gJkqbUYM8NnfEntnRvxI6S0xljTIh9J28rYMDGyjc0nc1OUwsjiRrMLGWhuezR+qaonJpFXrrGmfIxCa 1tUfQgIsFizCPSHRc/+yBUECpkmfPseA1goMpqEMea eeFVPQX5P/M6+7sYk6i3Rm7KtffQlyCaQyF3m4iuVvKlXrd9rnO097ZlD3+jwoBp+5VB2yDHftz7p+rR w9/RUBÉN/1xBFTBhPFTC2iIAcJP6Ip1FQzco7JLS3BaeTpenD1m1i2tP/+DQvMfkq+2PboEmdefW1YWXW9K [file] R5XVJ9yBQgSp5VNBN5KBf5Du8WXPONW4F= ID Date Data Source [id number] 01/10/2021 12:00:00 AM EDT [facility] Name Value Range Interpretation Code Description Data Ariela rce(s) Supporting Document(s) SARS-CoV2 Rapid Antigen Negative [facility] This lab was ordered by [facility] and reported by [facility]. ID Date Data Source [id number] 08/23/2020 10:45:00 AM EST [facility] Name Value Range Interpretation Code Description Data Ariela rce(s) Supporting Document(s) First [facility] NUTHEh0vXsXYCwDeUEPxOesOMHurZEwtUZJoR9S0TSvpNa5PBEoofpJeZBQzTj7+BRUhZO8aaa2yZXPa gMy [file] RELAY OPERATOR+QYF3RTmsH7t1/96eOPm4zc6P+2rhA5emoYaIEIx8IUfxSRIhAfTZaFxkjHyBZH/SUDTKQH955AgEu [file] Kjx5eISskP0EZkZQADmWrM5s8BDHoLFqe2UGCm3ndfM/docMOELU0RejNgqWRkSglLK/director of engineering/rWTUNw9c I+or0FhmUKUrgxnPhuccjx+Zu31v/v1MGTT9IpLmFOyL+mWAimz+fRtitqTan5/kaszXZB2w94i/lu6N hYpa/CIlLOJwIn/TcYhdhDb6v3aPv8xz0chKCAgsWV s7V76T2Am8bk8taW4yPwkAts45XPhgBzLokQ+MATT/JLE9UxcpDYcFT/oCot7xnmIwf/oQJdm0lDZRsYcW NmkXKp33fPeGNkHzh7EG3GyaNX3/oL0coNi1uT4pIRM++BBWZWIO7u2WTsDkGXIiheSC/Q3MZsT8aZoK m+46rxpjto0+8uKi+wTEJw6fyoW/MvrkXOtEGVV9HH 2Yu8iuKw3jpXzYsd0ttQmzgHKCgCg9/J+OyJw86fvFCy/GzfffCPo8bjs+xQMRZX8cLkurt3r14RYsJH WxOTRXRrou0xIShsz/k4/MQ3YDHgmfpWoEIvkrx4QtA2K7mNj4n+IU1hQhpojqYQkTWe2eygMS6pzEd1 L2HfKx1u7LIMhCP8KcQBB0XLXf8F/3hXhawrDGRvnM 4I+TfygtYHYq3GF9L3L0oVZBmRLafQvO1AwTwNksSru1TtWXIWDd7UudYxWky93A5ECiDLQo5gzjPDcu /9FVm6mzF515A3YofLgov6Po41bvNASZzHwlM6QLSXb1PdHr+bmLT7MIyDoUZrn5rStm4xQ5ssr3ZBZX 1XqwvDbKvulj9p5lJVuYIwXzA/k9/enozJcKtFh9c8 sum5cI2nLXxKL1C02tni4S096ARfjvrNhak4hd0tcW1ZygQAMzTtn4FfmZ+HxYX0yj9M7f+lMfZ7lq6Y SLViJYNh2YROFtePP2Db7WWTpDV3xnoA45fN2UlSgO5pSdo5PpgZI//KbLtBzyAyFtYkaFBGCuFKX7OZ 0wks10OgNFbKk4Dq0knLXH+FQllnMcy8rUJvk/KmjQ cwpLgvik0dIQtlRgFgfyBSNZnPIldeqk9vnXaOhtqdebeB9qZzbPa+iORdBUgwOlF0kG2KYQmMyU6CxL aDUVd66xYh1mT/RdbOreJGFWa/DeVcZeDwBpLjkb4+DJJ6V06nYwxPPZ4I0zZnraBcmeOFy2Ug+IRrKn bwfP8lLr/TJOSUXeGUIQ/jxpV2QZAX7gxrqWqWLIFk [file] gB9Vd4KLQldMq+financing analyst+IFID5Dr9epbT8DAofUSjE85T9Zz4oS6gSGk1xja1v2r2FgSLSRiTKzaZafGl3t [file] QaCj/Juan Jose+3HyF7WNC2FCV4Ef2etRnCONZQ8a7rt6XGi5OOHEUPOVo6UELmBX8OytSnI+cU2WTeu37N0u [file] vPbvjbx49r7Cc9oJnij+PRIVATE DUTY NURSE/cpi8OUiljlcEyUf+vMbSb9U4XM0oDyzxvuWDL+z8HbPW/aKNpM9YPjmW [file] rjckCHRjatwgSptqlqBE6ljYNKSi4luMqI5oM5Ht2eWreWiobhIrtg6djdu2Nvumtkotq/FtjLSjpjty J6Kz9qyoD4q2z6kTarkI4QfpPygg9kL79h0BSqDwS6GMbBvOcNO4FQs7mG7ookCI+o3EIDWnH3cd5y6z fx3F//HQpdHJdSgH7MP4dOaf8RxJd3L/7vGDjXjQ+q ppVpjof5sHj/Education Director/kJpwuzbTSB2pLPgknhpXlYEC/Tdrm7mSo0i3yybjquaoxbtkxStJ9wdcf1I6TDKi2 [file] 0svMNrjyXyEy6V8N+PCjNJryo6CRK+4actNcIz9/software security architect/5wrPUaawhCSO+WxxjY2fdWK9cqYt7Av/Hxb9 [file] jyoQlL1DRqJFFitxiWlR1BIBtYNhuu++JBzNG9/Bmk5Otcrgc4qFgQhoFXGnQhsyKuef+6/MFB0P5/RELAY OPERATOR [file] XgGR29S3MWGcZKhmvt5b6nSwK/rubén+ONsd60cyseQPrG8lgz9gQtj8cO97R7+B+V1X5otEJgIgpNYHKro [file] lUSNwmqp0ZXriFvst3UzP0mitdGjfAsAvJr6rJQ+RELAY OPERATOR [file] b9QfPqiDM4xbJ0O+aUJMFXZ4NZJWMBIyGoQGAMLqkO Xycunfzizv+0VL6p9tor9cTKJ0BbJOB7ijJgDLxmqCcGIbkBP11OTQt9WGgQVMxSFeYedDddL1A7/VF1 VQGk+6B6hPxWPV5nBnTbusF9YriCbZARdoIqfUz4K185ekTwRWntai29rL7DWqiFz/mdCq0VhqOJITnO RQPwUqtJvrLCm8t89nrAs2Ywbbj5t1fjUf9uDbXbNJ jrYJSEZQQr0A4u/460snqcsBV42kN7wCMPSxBNhzEVLu2b3nbf3YTlvqv7Wd069iyshj69YtIjA1/15x qGTEKhRYSnbbE7B7GXLbCcU/1B46gheBD4SN+mUgNgAfsITWhRSA/Rxh22Uk3ai9eRHKa1MoX20g+CR5 DzfvgD98Y16dPlgP4OCdCM0NO7kt7UZio2los2fVfN tIMRv//9uXJkrppvNF/YfoNPcMQ4j2sewU3yacyR/48wwfPLoh0KGmNOPHARANsXUd9U3mLVA/Rubén+FSy [file] SOCIAL WORK PROFESSOR/S3b/q5zhBrFwTAOd5gfrug6AGKX5LHMonqRgZK [file] evp operations/qXMP06WcdsluMWynWjJfKxVynK6spWl9ZGFSQ5i [file] Rubén/rQHM5CKn3nVsHmAj10GRzhvpHmgBetsF/HAhUmR [file] nyBENZ12CIUG1OMQ3gj2KlBKGkTVbrcpHxBgbBESlyuNXlmBxfUGFIZjl1ObF7XM9KXZQFL4B= Procedure Social History Code Duration Value Status Description Data Source(s ) Alcohol intake 07/08/2021 12:00:00 AM EDT Current drinker of al cohol (finding) completed Current drinker of alcohol (finding) [facility] Smoking 07/08/2021 12:00:00 AM EDT Former smoker completed Former smoker [facility] Smoking 03/16/2021 12:00:00 AM EDT Former Smoker completed Former Smoker eCW1 ([facility]) Smoking 03/16/2021 12:00:00 AM EDT Former Smoker completed Former Smoker eCW1 ([facility]) Vital Signs ID Date Data Source UNK Name Value Range Interpretation Code Description Data Source(s) Systolic blood pressure 146 mm[Hg] 146 mm[Hg] S [facility] Diastolic blood pressure 91 mm[Hg] 91 mm[Hg] [facility] Heart rate 113 /min 113 /min [facility] Body height 170.2 cm 170.2 cm [facility] Body weight 90.719 kg 90.719 kg [facility] Body mass index (BMI) [Ratio] 31.32 kg/m2 31.32 kg/m2 [facility] Body weight 194 [lb_av] 194 [lb_av] eCW1 ([facility]) Body height 66 [in_i] 66 [in_i] eCW1 ([facility]) Body mass index (BMI) [Ratio] 31.31 kg/m2 31.31 kg/m2 W1 ([facility]) Heart rate 86 /min 86 /min eCW1 ([facility]) Respiratory rate 16 /min 16 /min eCW1 ([facility]) Body temperature 98.6 [degF] 98.6 [degF] eCW1 ( [facility]) Systolic blood pressure 124 mm[Hg] 124 mm[Hg] e CW1 ([facility]) Diastolic blood pressure 80 mm[Hg] 80 mm[Hg] eCW1 ([facility]) Systolic blood pressure 144 mm[Hg] 144 mm[Hg] M EDENT ([facility], ) Diastolic blood pressure 85 mm[Hg] 85 mm[Hg] MEDENT ([facility], ) Body height 67 [in_i] 67 [in_i] MEDENT ([facility], ) 5'7" Body weight 198.00 [lb_av] 198.00 [lb_av] MEDEN T ([facility], ) Body mass index (BMI) [Ratio] 31.0 kg/m2 31.0 k g/m2 MEDENT ([facility], ) [place] body weight 148 [lb_av] 148 [lb_av] MEDEN T ([facility], ) Body weight 89.813 kg 89.813 kg [facility] Patient Treatment Plan of Care Planned Activity Planned Date Details Description Data Source (s) Cholestyramine Resin 66.7 MG/ML Oral Suspension [Preva lite] 05/13/2021 12:00:00 AM EDT [facility] montelukast 10 MG Oral Tablet 03/16/2021 12:00:00 AM EDT eCW1 ([facility]) gabapentin 300 MG Oral Capsule 03/16/2021 12:00:00 AM EDT eCW1 ([facility]) Albuterol Sulfate HFA 108 (90 Base) MCG/ACT 03/16/2021 12:00:00 AM EDT eCW1 ([facility]) 30 ACTUAT fluticasone furoate 0.2 MG/ACTUAT Dry Powder Inhaler [Arnuity] 03/16/2021 12:00:00 AM EDT eCW1 ([facility]) montelukast 10 MG Oral Tablet 03/16/2021 12:00:00 AM EDT eCW1 ([facility]) gabapentin 300 MG Oral Capsule 03/16/2021 12:00:00 AM EDT eCW1 ([facility]) Albuterol Sulfate HFA 108 (90 Base) MCG/ACT 03/16/2021 12:00:00 AM EDT eCW1 ([facility]) 30 ACTUAT fluticasone furoate 0.2 MG/ACTUAT Dry Powder Inhaler [Arnuity] 03/16/2021 12:00:00 AM EDT eCW1 ([facility])
[2021-09-07] MEDS ORDERED: NS 1,000 ML IV ONE (22:20)
[2021-09-07 23:31] LABS: BASO # 0.1 10^3/uL (0.0-0.2); BASO % 0.8 % (0.0-1.0); EOS # 0.3 10^3/uL (0.0-0.5); EOS % 2.7 % (0.0-3.0); HEMATOCRIT 50.8 % (42.0-52.0); HEMOGLOBIN 17.3 g/dl (13.5-17.5); LYMPH # 3.3 10^3/uL (1.5-5.0); LYMPH % 35.7 % (24.0-44.0); MEAN CORPUSCULAR HEMOGLOBIN 30.4 pg (27.0-33.0); MEAN CORPUSCULAR HGB CONC 34.1 g/dl (32.0-36.5); MEAN CORPUSCULAR VOLUME 89.1 fl (80.0-96.0); MONO # 0.8 10^3/uL (0.0-0.8); MONO % 8.7 % (2.0-8.0); NEUTROPHILS # 4.7 10^3/uL (1.5-8.5); NEUTROPHILS % 51.9 % (36.0-66.0); PLATELET COUNT, AUTOMATED 208 10^3/uL (150-450); WHITE BLOOD COUNT 9.1 10^3/uL (4.0-10.0)
[2021-09-08 00:19] LABS: ACETAMINOPHEN LEVEL < 2.0 UG/ML (10.0-30.0); ALBUMIN 4.5 GM/DL (3.2-5.2); ALT/SGPT 39 U/L (12-78); BILIRUBIN,DIRECT 0.2 MG/DL (0.0-0.2); BILIRUBIN,TOTAL 0.5 MG/DL (0.2-1.0); BLOOD UREA NITROGEN 10 MG/DL (7-18); CALCIUM LEVEL 9.2 MG/DL (8.5-10.1); CARBON DIOXIDE LEVEL 26 MEQ/L (21-32); CHLORIDE LEVEL 111 MEQ/L (98-107); CREATININE FOR GFR 0.96 MG/DL (0.70-1.30); ETHYL ALCOHOL (ETHANOL) 0.325 % (0.000-0.010); GLOMERULAR FILTRATION RATE > 60.0 (>60); GLUCOSE, FASTING 98 MG/DL (70-100); POTASSIUM SERUM 3.7 MEQ/L (3.5-5.1); SALICYLATE LEVEL < 1.7 MG/DL (5.0-30.0); SODIUM LEVEL 147 MEQ/L (136-145); TOTAL PROTEIN 7.8 GM/DL (6.4-8.2)
--- OUTSIDE RECORDS SUMMARY | 2021-09-08 04:10 | CCD ---
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 HELPER/ejx8TUluvlsJjYw+nEjGm4J4TU7qJvurpjEZB+z8HbPW/aAUaP8QZhaZ [file] pyfsJPGewyprSyibujQG7xdEQXCg0qlTfG5aP4Re9uIxrFxuepVdfz7mzwk3Pgokqrmbh/FtjLSjpjty S1Jq5xbeU6h0i9gMyvrR1GahPrtn6eI39z8OJuZtT4FQtYkVgUZ8MMv3hS6xerKU+v4LOIQjS7wj0p0r fx3F//UOwcGNeMdT4TG0hOng7HhOp8M/7vGDjXjQ+q cbUjiyy8cQm/Special Needs Babysitter/yWkepkzBVJ0pVFhjhdjBsXFF/Tuet4tCu2z0bdcywpzkshagpXqH4yozl4S5AZBc8 [file] 5rtWQpvvWqXk9U3J+FHyDHczy8LIP+7hwqVzWt4/grocery store courtesy [file] qzkUqT3XSsWHSihjqHdT9OHNlSNzrg++JBzNG9/Tzz8Ogzdaj0lVoHvgDWHeUgdiDjbb+6/MFB0P5/LIE DETECTOR OPERATOR [file] EvXK17D5BTUrCRiotc3p9hAdB/rubén+YQxf74zizbTFdV4hhw1zYha0wK79K8+B+J6M8utWRpIvsRCQJyk [file] kHZHldnk7XOhmQkzm5DgP3ekeyGhjDbQlQs4tAF+LIE DETECTOR OPERATOR [file] v0RqWqpDF8waD5J+jYEHQDA8RPYPENNoLsYMPIYjqC Xycunfzizv+8WM2z1zqm7kHPL5UcDTM1oeXtBRvvrOgRItkSH85RCUq2DCzROJmASmRurJhgN0X1/VF1 VQGk+7H6rWgPWI8pUwDagmD4HjwNmKRGohEulIv5S649jeIqQSqlhe01oN5RLkpVp/cbAf3BnbYRHTmA CXStSyfGipLTd8d28qyHp3Henjt6n7kdGv0kIyZqZZ blWNAMMOPr6E1q/276ioifeGK08tR1kMPOWzPKvcDOFt9e8rkl2RVqcnc9Tc545laino49RnPiZ2/15x xTHUBcWJAvpbH9T2ZDFrOqS/8F07kfyDA4CQ+mUgNgAfsITWhRSA/Him84Se9qa4dOQCn8HjV85a+CR5 DcoiwU44J99vHxoF8RZwIF3VS6dp1BSfu3vrq1dHjT tIMRv//9uXJkrppvNF/ZjxCZhNL4z2sikQ5ffzzH/94muhPRqc2GJgQJAWLDBXfTCp8X9xDFS/Rubén+FSy [file] STUDENT FINANCIAL AID MANAGER/S3b/i7smOaIwNOHm5svwhd2FEYV0LRTrjmXeNQ [file] vp of marketing/qIFW32DaxzciQJcfKvDsVzVclN0whFp3JQHZD3k [file] Rubén/jDRW2OWh2kRdCfNq98CFghoaGxaXjaaI/HAhUmR [file] zhSFRJ72XSDM9HQK5fo5RlHCCcLJonzkLjSvbHFBwbxAWypEapMAYQRmm7SgV6UX6GZAEZJ9H= Procedure Social History Code Duration Value Status Description Data Source(s ) Alcohol intake 07/08/2021 12:00:00 AM EDT Current drinker of al cohol (finding) completed Current drinker of alcohol (finding) [facility] Smoking 07/08/2021 12:00:00 AM EDT Former smoker completed Former smoker [facility] Smoking 03/16/2021 12:00:00 AM EDT Former Smoker completed Former Smoker eCW1 ([facility]) Smoking 03/16/2021 12:00:00 AM EDT Former Smoker completed Former Smoker eCW1 ([facility]) Vital Signs ID Date Data Source UNK Name Value Range Interpretation Code Description Data Source(s) Systolic blood pressure 146 mm[Hg] 146 mm[Hg] [facility] Diastolic blood pressure 91 mm[Hg] 91 mm[Hg] [facility] Heart rate 113 /min 113 /min [facility] Body height 170.2 cm 170.2 cm [facility] Body weight 90.719 kg 90.719 kg [facility] Body mass index (BMI) [Ratio] 31.32 kg/m2 31.32 kg/m2 [facility] Body weight 194 [lb_av] 194 [lb_av] eCW1 ([facility]) Body height 66 [in_i] 66 [in_i] eCW1 ([facility]) Body mass index (BMI) [Ratio] 31.31 kg/m2 31.31 kg/m2 W1 ([facility]) Heart rate 86 /min 86 /min eCW1 ([facility]) Respiratory rate 16 /min 16 /min eCW1 ([facility]) Body temperature 98.6 [degF] 98.6 [degF] eCW1 ( [facility]) Systolic blood pressure 124 mm[Hg] 124 mm[Hg] e CW1 ([facility]) Diastolic blood pressure 80 mm[Hg] 80 mm[Hg] eCW1 ([facility]) Systolic blood pressure 144 mm[Hg] 144 mm[Hg] M EDENT [facility] Diastolic blood pressure 85 mm[Hg] 85 mm[Hg] MEDENT ([facility] Body height 67 [in_i] 67 [in_i] MEDENT ([facility], ) 5'7" Body weight 198.00 [lb_av] 198.00 [lb_av] MEDEN T ([facility] ) Body mass index (BMI) [Ratio] 31.0 kg/m2 31.0 k g/m2 MEDENT ([facility] ) [place] body weight 148 [lb_av] 148 [lb_av] MEDEN T ([facility] ) Body weight 89.813 kg 89.813 kg [facility] Patient Treatment Plan of Care Planned Activity Planned Date Details Description Data Source (s) Cholestyramine Resin 66.7 MG/ML Oral Suspension [Preva lite] 05/13/2021 12:00:00 AM EDT [facility] montelukast 10 MG Oral Tablet 03/16/2021 12:00:00 AM EDT eCW1 ([facility]) gabapentin 300 MG Oral Capsule 03/16/2021 12:00:00 AM EDT eCW1 ([facility]) Albuterol Sulfate HFA 108 (90 Base) MCG/ACT 03/16/2021 12:00:00 AM EDT eCW1 ([facility]) 30 ACTUAT fluticasone furoate 0.2 MG/ACTUAT Dry Powder Inhaler [Arnuity] 03/16/2021 12:00:00 AM EDT eCW1 ([facility]) montelukast 10 MG Oral Tablet 03/16/2021 12:00:00 AM EDT eCW1 ([facility]) gabapentin 300 MG Oral Capsule 03/16/2021 12:00:00 AM EDT eCW1 ([facility]) Albuterol Sulfate HFA 108 (90 Base) MCG/ACT 03/16/2021 12:00:00 AM EDT eCW1 ([facility]) 30 ACTUAT fluticasone furoate 0.2 MG/ACTUAT Dry Powder Inhaler [Arnuity] 03/16/2021 12:00:00 AM EDT eCW1 ([facility])
--- NOTE | 2021-09-08 06:44 | ECGEPIP ---
[facility] - ED Test Date: 2021-09-07 Pat Name: SONI GILL Department: Room: - Gender: Male [employer] Supervisor: CHRISTI : [id number] Requested By: MARK Chang Order Number: [id number] Reading MD: Ignacio Jack Measurements Intervals Call Rate: 78 P: 49 OH: 140 QRS: 45 QRSD: 108 T: 20 QT: 392 QTc: 446 Interpretive Statements Normal sinus rhythm POOR R WAVE PROGRESSION NONSPECIFIC T WAVE ABNORMALITY(S) NO PRIORS FOR COMPARISON Electronically Signed on 09-08-2021 6:43:53 EST by Ignacio Jack
[2021-09-08 07:04] LABS: AMPHETAMINES LEVEL URINE NEGATIVE (NEGATIVE); BARBITURATES URINE NEGATIVE (NEGATIVE); BENZODIAZEPINES URINE NEGATIVE (NEGATIVE); CANNABINOIDS URINE NEGATIVE (NEGATIVE); COCAINE METABOLITE URINE NEGATIVE (NEGATIVE); METHADONE URINE NEGATIVE (NEGATIVE); OPIATES URINE NEGATIVE (NEGATIVE); PHENCYCLIDINE URINE NEGATIVE (NEGATIVE)
[2021-09-08 07:25] VITALS: BP 124/87
[2021-09-08] MEDS ORDERED: ACETAMINOPHEN TAB 650MG DOSE (2X325MG) PO ONE (07:30)
== END 2021-09-08 08:20 | disposition home or self-care (01) ==
LOC: M ED 22:01
DX: F10.129 Alcohol abuse with intoxication, unspecified (principal); M06.9 Rheumatoid arthritis, unspecified; M79.7 Fibromyalgia; Z79.899 Other long term (current) drug therapy; Z91.041 Radiographic dye allergy status; Z91.013 Allergy to seafood; Z88.6 Allergy status to analgesic agent; Z88.8 Allergy status to other drugs, medicaments and biological substances

== ENCOUNTER 2021-11-21 15:24 | Emergency (ER) | payer BC ==
[~2021-11-21] VITALS: Ht 165.1 cm; Wt 85.4 kg
[2021-11-21] MEDS ORDERED: QUES4POW PO (15:39)
[2021-11-21] MEDS ORDERED: CLIN-250 (15:39)
[2021-11-21] MEDS ORDERED: GABA-282 (15:39)
[2021-11-21] MEDS ORDERED: ACETAMINOPHEN 500 MG TAB PO ONE (17:30)
[2021-11-21] MEDS ORDERED: BACTRIM 160MG/800MG DS TAB PO ONE (17:30)
[2021-11-21] MEDS ORDERED: BACT800T5 PO (17:35)
[2021-11-21 17:46] VITALS: BP 134/81
== END 2021-11-21 18:02 | disposition home or self-care (01) ==
LOC: M ED 15:24
DX: L03.114 Cellulitis of left upper limb (principal); Z91.041 Radiographic dye allergy status; Z88.8 Allergy status to other drugs, medicaments and biological substances; Z91.013 Allergy to seafood; Z79.899 Other long term (current) drug therapy

== ENCOUNTER → 2022-01-31 | Outpatient (CLI) | payer BC ==
[~2022-01-31] MED LIST changes: +BACT800T5 PO; +CLIN-250; +GABA-282; +QUES4POW PO
[2022-01-31 10:54] LABS: HEMATOCRIT 45.1 % (42.0-52.0); HEMOGLOBIN 14.4 g/dl (13.5-17.5); MEAN CORPUSCULAR HEMOGLOBIN 26.5 pg (27.0-33.0); MEAN CORPUSCULAR HGB CONC 31.9 g/dl (32.0-36.5); MEAN CORPUSCULAR VOLUME 83.1 fl (80.0-96.0); PLATELET COUNT, AUTOMATED 270 10^3/uL (150-450); RED BLOOD COUNT 5.43 10^6/uL (4.30-6.10); WHITE BLOOD COUNT 8.9 10^3/uL (4.0-10.0)
[2022-01-31 11:23] LABS: ERYTHROCYTE SEDIMENTATION RATE 2 mm/hr (0-15)
[2022-01-31 11:28] LABS: ALBUMIN 3.8 GM/DL (3.2-5.2); ALT/SGPT 23 U/L (12-78); BILIRUBIN,TOTAL 0.5 MG/DL (0.2-1.0); BLOOD UREA NITROGEN 14 MG/DL (7-18); CALCIUM LEVEL 8.8 MG/DL (8.5-10.1); CARBON DIOXIDE LEVEL 30 MEQ/L (21-32); CHLORIDE LEVEL 105 MEQ/L (98-107); CREATININE FOR GFR 0.98 MG/DL (0.70-1.30); GLOMERULAR FILTRATION RATE > 60.0 (>60); GLUCOSE, FASTING 93 MG/DL (70-100); POTASSIUM SERUM 4.6 MEQ/L (3.5-5.1); RHEUMATOID FACTOR QUANT < 10.0 IU/ML (<15.0); SODIUM LEVEL 138 MEQ/L (136-145); TOTAL PROTEIN 6.7 GM/DL (6.4-8.2)
[2022-02-01 23:08] LABS: ANTINUCLEAR ANTIBODIES DIRECT Negative (Negative); CYCLIC CITRULLINATED PEPTIDE 2 units (0-19)
== END ==
LOC: M PLALAB 08:28
PROVIDERS: ATTEND Nurse Practitioner Adult Health
DX: M05.9 Rheumatoid arthritis with rheumatoid factor, unspecified (principal)

== ENCOUNTER → 2022-03-29 | Outpatient (CLI) | payer BC | LOC: M RAD 14:43 | PROVIDERS: ATTEND Nurse Practitioner Adult Health | DX: R10.10 Upper abdominal pain, unspecified (principal); Z98.890 Other specified postprocedural states; Z87.19 Personal history of other diseases of the digestive system ==

== ENCOUNTER 2022-04-02 12:19 | Emergency (ER) | payer BC ==
[~2022-04-02] VITALS: Ht 165.1 cm; Wt 80.8 kg
[2022-04-02 12:20] VITALS: BP 142/86
[2022-04-02] MEDS ORDERED: CHOL4PKT (12:28)
[2022-04-02] MEDS ORDERED: GABA600T4 (12:28)
[2022-04-02 13:35] LABS: BASO # 0.1 10^3/uL (0.0-0.2); BASO % 0.7 % (0.0-1.0); EOS # 0.1 10^3/uL (0.0-0.5); EOS % 1.9 % (0.0-3.0); HEMATOCRIT 41.8 % (42.0-52.0); HEMOGLOBIN 14.1 g/dl (13.5-17.5); LYMPH # 1.9 10^3/uL (1.5-5.0); LYMPH % 25.2 % (24.0-44.0); MEAN CORPUSCULAR HEMOGLOBIN 28.3 pg (27.0-33.0); MEAN CORPUSCULAR HGB CONC 33.7 g/dl (32.0-36.5); MEAN CORPUSCULAR VOLUME 83.8 fl (80.0-96.0); MONO # 0.8 10^3/uL (0.0-0.8); MONO % 10.7 % (2.0-8.0); NEUTROPHILS # 4.5 10^3/uL (1.5-8.5); NEUTROPHILS % 61.2 % (36.0-66.0); PLATELET COUNT, AUTOMATED 210 10^3/uL (150-450); RED BLOOD COUNT 4.99 10^6/uL (4.30-6.10); WHITE BLOOD COUNT 7.4 10^3/uL (4.0-10.0)
[2022-04-02 13:56] LABS: ALBUMIN 3.9 GM/DL (3.2-5.2); BILIRUBIN,DIRECT 0.2 MG/DL (0.0-0.2); BILIRUBIN,TOTAL 0.3 MG/DL (0.2-1.0); TOTAL PROTEIN 6.9 GM/DL (6.4-8.2)
[2022-04-02 13:58] LABS: HEMOGLOBIN A1c 5.1 %
[2022-04-02] MEDS ORDERED: diphenhydrAMINE 50MG/ML VIAL (J1200) IV STA ×2 (14:31→17:23)
[2022-04-02] MEDS ORDERED: methylPREDNISolone 125MG 2ML VIAL IV ONE (14:35)
[2022-04-02] MEDS ORDERED: GI COCKTAIL 50ML BTL(HYOSCYAMINE/MAALOX/LIDOCAINE VISCOUS)(1:3:1) PO ONE (15:15)
[2022-04-02] MEDS: GASTROGRAFIN SOLUTION 30ML PO SCH ×2 (16:02→16:29)
[2022-04-02] MEDS ORDERED: ISOVUE-370 76% 100ML VIAL As Ordered ONE (17:23)
== END 2022-04-02 18:59 | disposition home or self-care (01) ==
LOC: M ED 12:19
DX: G89.29 Other chronic pain (principal); R10.9 Unspecified abdominal pain; N28.1 Cyst of kidney, acquired; M43.17 Spondylolisthesis, lumbosacral region; K90.0 Celiac disease; K58.9 Irritable bowel syndrome, unspecified; K21.9 Gastro-esophageal reflux disease without esophagitis; J45.909 Unspecified asthma, uncomplicated; R51.9 Headache, unspecified; Z90.49 Acquired absence of other specified parts of digestive tract; Z87.19 Personal history of other diseases of the digestive system; Z88.8 Allergy status to other drugs, medicaments and biological substances; Z91.041 Radiographic dye allergy status; Z91.013 Allergy to seafood; Z79.899 Other long term (current) drug therapy
CPT/HCPCS: 74177; 80047; 80076; 81001; 83036; 83690; 85025; 96374; 96375; 99284; J1200; J2930; Q9963; Q9967

== ENCOUNTER → 2022-06-02 | Outpatient (CLI) | payer BC ==
[~2022-06-02] MED LIST changes: +CHOL4PKT; +GABA600T4
== END ==
LOC: M SOG 08:18
PROVIDERS: ATTEND Orthopaedic Surgery Hand Surgery
DX: M79.641 Pain in right hand (principal); M79.642 Pain in left hand

== ENCOUNTER 2022-11-06 09:00 | Emergency (ER) | payer BC, OTHER ==
[~2022-11-06] VITALS: Ht 165.1 cm; Wt 72.7 kg
[2022-11-06] MEDS ORDERED: COLE625T (09:35)
[2022-11-06 10:07] LABS: BASO # 0.1 10^3/uL (0.0-0.2); BASO % 0.8 % (0.0-1.0); EOS # 0.4 10^3/uL (0.0-0.5); EOS % 4.7 % (0.0-3.0); HEMATOCRIT 42.6 % (42.0-52.0); HEMOGLOBIN 14.1 g/dl (13.5-17.5); LYMPH # 1.8 10^3/uL (1.5-5.0); LYMPH % 24.1 % (24.0-44.0); MEAN CORPUSCULAR HEMOGLOBIN 29.9 pg (27.0-33.0); MEAN CORPUSCULAR HGB CONC 33.1 g/dl (32.0-36.5); MEAN CORPUSCULAR VOLUME 90.3 fl (80.0-96.0); MONO # 0.7 10^3/uL (0.0-0.8); NEUTROPHILS # 4.6 10^3/uL (1.5-8.5); NEUTROPHILS % 61.3 % (36.0-66.0); PLATELET COUNT, AUTOMATED 222 10^3/uL (150-450); RED BLOOD COUNT 4.72 10^6/uL (4.30-6.10); WHITE BLOOD COUNT 7.5 10^3/uL (4.0-10.0)
[2022-11-06 10:29] LABS: LIPASE 58 U/L (12-53)
[2022-11-06 10:30] LABS: CK-MB VALUE MASS < 1.0 NG/ML (<3.6)
[2022-11-06 10:31] LABS: ALKALINE PHOSPHATASE 62 U/L (46-116); ALT/SGPT 17 U/L (7.0-40); AST/SGOT 18 U/L (<34); BILIRUBIN,TOTAL 0.2 MG/DL (0.3-1.2); BLOOD UREA NITROGEN 13 MG/DL (9-23); CALCIUM LEVEL 9.1 MG/DL (8.5-10.1); CARBON DIOXIDE LEVEL 31 MMOL/L (20-31); CHLORIDE LEVEL 104 MMOL/L (98-107); CREATININE FOR GFR 1.05 MG/DL (0.70-1.30); GLOMERULAR FILTRATION RATE > 60.0 (>60); GLUCOSE, FASTING 99 MG/DL (60-100); POTASSIUM SERUM 4.2 MMOL/L (3.5-5.1); SODIUM LEVEL 141 MMOL/L (136-145); TOTAL PROTEIN 6.6 G/DL (5.7-8.2)
[2022-11-06 10:32] LABS: CPK CREATINE PHOSPHOKINASE 113 U/L (46-171); MB/CK RELATIVE INDEX 0.88 (< OR =4)
[2022-11-06 10:32] LABS: BILIRUBIN,DIRECT < 0.1 MG/DL (<0.4)
[2022-11-06 13:44] LABS: APPEARANCE, URINE MANUAL CLEAR (CLEAR); COLOR, URINE MANUAL COLORLESS (YELLOW)
[2022-11-06 13:45] LABS: BILIRUBIN, URINE MANUAL NEGATIVE (NEGATIVE); BLOOD URINE MANUAL NEGATIVE (NEGATIVE); GLUCOSE, URINE (UA) MANUAL NEGATIVE (NEGATIVE); KETONE, URINE MANUAL NEGATIVE (NEGATIVE); LEUKOCYTE ESTERASE, URINE MAN NEGATIVE (NEGATIVE); NITRITE, URINE MANUAL NEGATIVE (NEGATIVE); PROTEIN, URINE MANUAL NEGATIVE (NEGATIVE); SPECIFIC GRAVITY,URINE MANUAL 1.003 (1.002-1.035); UROBILINOGEN, URINE MANUAL NORMAL (NORMAL)
[2022-11-06] MEDS ORDERED: LASI20TA3 PO (14:02)
[2022-11-06 14:21] VITALS: BP 153/102
== END 2022-11-06 14:15 | disposition home or self-care (01) ==
LOC: M ED 09:00
DX: R60.9 Edema, unspecified (principal); K58.9 Irritable bowel syndrome, unspecified; J45.909 Unspecified asthma, uncomplicated; K90.0 Celiac disease; Z88.8 Allergy status to other drugs, medicaments and biological substances; Z91.013 Allergy to seafood; Z91.041 Radiographic dye allergy status; Z79.899 Other long term (current) drug therapy

== ENCOUNTER → 2022-11-15 | Outpatient (REF) | payer OTHER ==
[~2022-11-15] MED LIST changes: +COLE625T; +LASI20TA3 PO
[2022-11-15 15:00] LABS: BASO # 0.1 10^3/uL (0.0-0.2); BASO % 1.1 % (0.0-1.0); EOS # 0.1 10^3/uL (0.0-0.5); HEMOGLOBIN 14.9 g/dl (13.5-17.5); LYMPH # 1.5 10^3/uL (1.5-5.0); LYMPH % 23.3 % (24.0-44.0); MEAN CORPUSCULAR HEMOGLOBIN 29.9 pg (27.0-33.0); MEAN CORPUSCULAR HGB CONC 33.1 g/dl (32.0-36.5); MEAN CORPUSCULAR VOLUME 90.2 fl (80.0-96.0); MONO # 0.6 10^3/uL (0.0-0.8); MONO % 8.9 % (2.0-8.0); NEUTROPHILS # 4.2 10^3/uL (1.5-8.5); NEUTROPHILS % 64.5 % (36.0-66.0); PLATELET COUNT, AUTOMATED 249 10^3/uL (150-450); RED BLOOD COUNT 4.99 10^6/uL (4.30-6.10); WHITE BLOOD COUNT 6.5 10^3/uL (4.0-10.0)
[2022-11-15 15:06] LABS: FREE T4 1.05 NG/DL (0.89-1.76)
[2022-11-15 15:10] LABS: ALBUMIN 4.2 G/DL (3.2-5.2); ALKALINE PHOSPHATASE 68 U/L (46-116); ALT/SGPT 17 U/L (7.0-40); AST/SGOT 16 U/L (<34); BILIRUBIN,TOTAL 0.2 MG/DL (0.3-1.2); BLOOD UREA NITROGEN 15 MG/DL (9-23); CALCIUM LEVEL 9.1 MG/DL (8.5-10.1); CARBON DIOXIDE LEVEL 28 MMOL/L (20-31); CHLORIDE LEVEL 105 MMOL/L (98-107); CHOLESTEROL LEVEL 179 MG/DL (<200); CHOLESTEROL RISK RATIO 2.41 (<5); CREATININE FOR GFR 1.02 MG/DL (0.70-1.30); GLOMERULAR FILTRATION RATE > 60.0 (>60); GLUCOSE, FASTING 93 MG/DL (60-100); NON-HDL-C 105 MG/DL; POTASSIUM SERUM 5.3 MMOL/L (3.5-5.1); SODIUM LEVEL 141 MMOL/L (136-145); TOTAL PROTEIN 6.9 G/DL (5.7-8.2); TRIGLYCERIDES LEVEL 85 MG/DL (<150)
[2022-11-15 15:11] LABS: THYROID STIMULATING HORMONE 1.626 uIU/ML (0.55-4.78)
[2022-11-15 15:19] LABS: HEPATITIS B SURFACE ANTIGEN NEGATIVE (NEGATIVE)
[2022-11-15 15:31] LABS: HIV 1&2 SCREEN CENTAUR NEGATIVE (NEGATIVE)
[2022-11-15 15:39] LABS: HEPATITIS B CORE ANTIBODY IGM NEGATIVE (NEGATIVE)
[2022-11-15 16:15] LABS: HEMOGLOBIN A1c 4.6 % (4.0-6.0)
== END ==
LOC: M LAB REF 12:27
PROVIDERS: ATTEND Nurse Practitioner Family
DX: Z11.9 Encounter for screening for infectious and parasitic diseases, unspecified (principal); R03.0 Elevated blood-pressure reading, without diagnosis of hypertension; R42 Dizziness and giddiness

== ENCOUNTER 2023-02-07 16:48 | Emergency (ER) | payer OTHER ==
[~2023-02-07] VITALS: Ht 167.6 cm; Wt 72.4 kg
[2023-02-07 16:49] VITALS: BP 132/87
[2023-02-07] MEDS ORDERED: ACETAMINOPHEN 1000MG 100ML IV BAG IV ONE (17:30)
[2023-02-07] MEDS ORDERED: NS 1,000 ML IV ONE (17:30)
[2023-02-07] MEDS ORDERED: ISOVUE-370 76% 100ML VIAL As Ordered ONE (18:00)
[2023-02-07 18:02] LABS: BASO # 0.1 10^3/uL (0.0-0.2); BASO % 0.8 % (0.0-1.0); EOS # 0.2 10^3/uL (0.0-0.5); EOS % 2.3 % (0.0-3.0); HEMATOCRIT 40.1 % (42.0-52.0); HEMOGLOBIN 13.5 g/dl (13.5-17.5); LYMPH # 2.3 10^3/uL (1.5-5.0); LYMPH % 30.4 % (24.0-44.0); MEAN CORPUSCULAR HEMOGLOBIN 29.8 pg (27.0-33.0); MEAN CORPUSCULAR HGB CONC 33.7 g/dl (32.0-36.5); MEAN CORPUSCULAR VOLUME 88.5 fl (80.0-96.0); MONO # 0.6 10^3/uL (0.0-0.8); MONO % 8.4 % (2.0-8.0); NEUTROPHILS # 4.4 10^3/uL (1.5-8.5); NEUTROPHILS % 57.8 % (36.0-66.0); PLATELET COUNT, AUTOMATED 203 10^3/uL (150-450); RED BLOOD COUNT 4.53 10^6/uL (4.30-6.10); WHITE BLOOD COUNT 7.5 10^3/uL (4.0-10.0)
[2023-02-07] MEDS ORDERED: diphenhydrAMINE 50MG/ML VIAL IV ONE (18:05)
[2023-02-07] MEDS ORDERED: methylPREDNISolone 125MG 2ML VIAL IV ONE (18:05)
[2023-02-07 18:21] LABS: ALBUMIN 3.8 G/DL (3.2-5.2); BILIRUBIN,DIRECT 0.1 MG/DL (<0.4); BILIRUBIN,TOTAL 0.4 MG/DL (0.3-1.2); TOTAL PROTEIN 6.4 G/DL (5.7-8.2)
[2023-02-07] MEDS ORDERED: MIRA3350 PO (20:41)
== END 2023-02-07 21:03 | disposition home or self-care (01) ==
LOC: M ED 16:48
DX: K59.00 Constipation, unspecified (principal); K76.0 Fatty (change of) liver, not elsewhere classified; N28.1 Cyst of kidney, acquired; N40.0 Benign prostatic hyperplasia without lower urinary tract symptoms; M43.17 Spondylolisthesis, lumbosacral region; K21.9 Gastro-esophageal reflux disease without esophagitis; J45.909 Unspecified asthma, uncomplicated; K90.0 Celiac disease; K58.9 Irritable bowel syndrome, unspecified; Z90.49 Acquired absence of other specified parts of digestive tract; Z88.8 Allergy status to other drugs, medicaments and biological substances; Z91.041 Radiographic dye allergy status; Z91.013 Allergy to seafood
CPT/HCPCS: 74177; 80047; 80076; 81001; 83690; 85025; 96361; 96374; 96375; 99284; J0131; J1200; J2930; Q9967

== ENCOUNTER → 2023-04-02 | Outpatient (CLI) | payer OTHER ==
[~2023-04-02] MED LIST changes: -HYDR200T3 PO; +HYDR200T46 PO; +MIRA3350 PO
[2023-04-02 20:01] LABS: ALBUMIN 4.2 G/DL (3.2-5.2); ALKALINE PHOSPHATASE 63 U/L (46-116); ALT/SGPT 17 U/L (7.0-40); AST/SGOT 9 U/L (<34); BILIRUBIN,DIRECT < 0.1 MG/DL (<0.4); BILIRUBIN,TOTAL 0.2 MG/DL (0.3-1.2); BLOOD UREA NITROGEN 14 MG/DL (9-23); CALCIUM LEVEL 8.4 MG/DL (8.5-10.1); CARBON DIOXIDE LEVEL 30 MMOL/L (20-31); CHLORIDE LEVEL 105 MMOL/L (98-107); CREATININE FOR GFR 0.94 MG/DL (0.70-1.30); GLOMERULAR FILTRATION RATE > 60.0 (>60); GLUCOSE, FASTING 79 MG/DL (60-100); SODIUM LEVEL 141 MMOL/L (136-145); TOTAL PROTEIN 6.7 G/DL (5.7-8.2)
[2023-04-02 20:05] LABS: VITAMIN B12 LEVEL 613 PG/ML (211-911)
[2023-04-02 20:18] LABS: HEMOGLOBIN A1c 4.9 % (4.0-6.0)
== END ==
LOC: M LAB 18:25
PROVIDERS: ATTEND Physician Assistant Medical
DX: R60.9 Edema, unspecified (principal); K74.60 Unspecified cirrhosis of liver

== ENCOUNTER 2023-11-03 17:49 | Emergency (ER) | payer OTHER ==
[~2023-11-03] VITALS: Ht 170.2 cm; Wt 70.3 kg
[2023-11-03 17:52] VITALS: BP 138/84; TEMP 98.3; O2SAT 99
[2023-11-03] MEDS ORDERED: ALBU8.5H (18:04)
[2023-11-03] MEDS ORDERED: PANT40TA29 (18:04)
[2023-11-03] MEDS ORDERED: OMEP40CA4 PO (18:04)
[2023-11-03] MEDS ORDERED: LIDOCAINE 1% MDV 20ML VIAL SC ONE (20:45)
[2023-11-03] MEDS ORDERED: BOOSTRIX VACCINE (TETANUS/DIPHTH/ACEL. PERTUSSIS) 0.5ML SYR IM ONE (20:50)
[2023-11-06] MEDS ORDERED: DULO1CAP5 PO (09:33)
== END 2023-11-03 21:40 | disposition home or self-care (01) ==
LOC: M ED 17:49
DX: S66.102A Unspecified injury of flexor muscle, fascia and tendon of right middle finger at wrist and hand level, initial encounter (principal); W26.8XXA Contact with other sharp object(s), not elsewhere classified, initial encounter; Y92.009 Unspecified place in unspecified non-institutional (private) residence as the place of occurrence of the external cause; Y93.9 Activity, unspecified; Y99.9 Unspecified external cause status; K21.9 Gastro-esophageal reflux disease without esophagitis; Z88.6 Allergy status to analgesic agent; Z88.8 Allergy status to other drugs, medicaments and biological substances; Z91.041 Radiographic dye allergy status; Z91.013 Allergy to seafood; Z91.018 Allergy to other foods

== ENCOUNTER 2023-11-07 12:41 | Day surgery (SDC) | payer OTHER ==
[~2023-11-07] VITALS: Ht 167.6 cm; Wt 67.2 kg
[~2023-11-07 12:41] MED LIST changes: +ALBU8.5H; +DULO1CAP5 PO; +OMEP40CA4 PO; +PANT40TA29
[2023-11-07] MEDS ORDERED: LR 1,000 ML IV SCH ×2 (13:05→16:00)
[2023-11-07] MEDS ORDERED: LIDOCAINE 2% 100MG/5ML SDV (FOR ANES.) As Ordered ONE (15:33)
[2023-11-07] MEDS ORDERED: ONDANSETRON 4MG 2ML VIAL As Ordered ONE (15:33)
[2023-11-07] MEDS ORDERED: fentaNYL 100 MCG/2 ML INJECTION As Ordered ONE (15:33)
[2023-11-07] MEDS ORDERED: propofoL 200 MG/20 ML VIAL As Ordered ONE (15:33)
[2023-11-07] MEDS ORDERED: MIDAZOLAM INJ 2MG/2ML VIAL As Ordered ONE (15:33)
[2023-11-07] MEDS ORDERED: KETOROLAC 60MG 2ML VIAL As Ordered ONE (15:34)
[2023-11-07] MEDS ORDERED: BACITRACIN OINTMENT 30GM TUBE As Ordered ONE (16:02)
[2023-11-07] MEDS ORDERED: ceFAZolin 1GM VIAL As Ordered ONE (16:21)
[2023-11-07] MEDS ORDERED: ACETAMINOPHEN 1000MG 100ML IV BAG As Ordered ONE (16:46)
[2023-11-07] MEDS ORDERED: METOCLOPRAMIDE INJ 10MG/2ML VIAL IV PRN (17:40)
[2023-11-07] MEDS ORDERED: ONDANSETRON 4MG 2ML VIAL IV PRN (17:40)
[2023-11-07] MEDS ORDERED: oxyCODONE 5MG TAB PO PRN (17:40)
[2023-11-07] MEDS ORDERED: fentaNYL 100 MCG/2 ML INJECTION IV PRN (17:40)
[2023-11-07] MEDS ORDERED: PERCOCET PO (17:54)
[2023-11-07 18:34] VITALS: BP 125/73; TEMP 98.9; O2SAT 98
== END 2023-11-07 18:48 | disposition home or self-care (01) ==
LOC: M SDC 12:41
PROVIDERS: ATTEND Orthopaedic Surgery Hand Surgery
DX: S61.212A Laceration without foreign body of right middle finger without damage to nail, initial encounter (principal); X58.XXXA Exposure to other specified factors, initial encounter; Y92.89 Other specified places as the place of occurrence of the external cause; Y93.89 Activity, other specified; Y99.9 Unspecified external cause status; E11.9 Type 2 diabetes mellitus without complications; E78.00 Pure hypercholesterolemia, unspecified; F41.9 Anxiety disorder, unspecified; Z91.041 Radiographic dye allergy status; Z91.013 Allergy to seafood; Z88.8 Allergy status to other drugs, medicaments and biological substances; Z79.899 Other long term (current) drug therapy
CPT/HCPCS: 26373; J0131; J0665; J0690; J1100; J2250; J2405; J3010